=== PATIENT | female | born 1930 | race Caucasian/White ===

== ENCOUNTER 2016-12-27 18:14 | Inpatient (IN) | payer OTHER ==
[~2016-12-27] VITALS: Ht 157.5 cm; Wt 59.4 kg
[~2016-12-27 18:14] MED LIST: ASPI81TA28 PO; CALC500C70 PO; CARBTAB2 PO; CLC100X PO; FSM70 PO; GLUCTAB18 PO; MULT-506 PO; OMEG10007 PO; OXYC1TAB3 PO; PRLSR20 PO; XNX25 PO
[2016-12-27] MEDS ORDERED: SODIUM CHLORIDE 0.9% 1000ML 1,000 ML IV ONE (18:25)
[2016-12-27] MEDS ORDERED: ONDANSETRON INJ 2 MG/ML 2 ML VIAL IV STA (18:27)
--- NOTE | 2016-12-27 18:36 | EMERGENCY ROOM VISIT NOTE ---
History Report prepared by Elizabeth: Indy Patel Under the Supervision of: Dr. Maximilian Dominguez M.D. First contact with patient: 18:20 Chief Complaint: FALL Stated Complaint: FALL R HIP & KNEE PAIN History of Present Illness The patient is an 86 year old female who presents to the Emergency Room with complaints of a sudden fall that occurred just prior to arrival. Per nursing staff, the patient was cooking in her kitchen when her right knee gave out from under her and causing her to fall. They note that the patient landed on her right hip, and the patient reports right hip pain. The patient reports a history of a right knee replacement several years ago, noting that her knee gives out from time to time. The patient additionally notes head pain, reporting that she hit her head off the door. Review of Systems See HPI for pertinent positives & negatives. A total of 10 systems reviewed and were otherwise negative. Past Medical & Surgical Medical Problems: (1) Anxiety (2) Hip fracture (3) Osteoporosis (4) Parkinson disease Surgical Problems: (1) History of cataract surgery (2) History of left knee replacement (3) History of repair of right rotator cuff (4) History of spinal fusion (5) Status post right knee replacement Family History No pertinent family history stated. Social History Marital Status: Housing Status: lives with significant other Occupation Status: retired Current/Historical Medications Scheduled Alprazolam (Alprazolam), 0.25 MG PO BID Aspirin (Aspirin EC Low Dose), 81 MG PO DAILY Calcium/Vitamin D (Os-Nithin 500 Plus D), 1 TAB PO BID Carbidopa/Levodopa (Sinemet 25MG/100MG), 2 TAB PO UD Duloxetine HCl (Cymbalta), 1 CAP PO HS Enoxaparin (Enoxaparin Sodium), 40 MG SQ DAILY Ferrous Sulfate (Ferrous Sulfate), 325 MG PO DAILY Misc Natural Products (Osteo Bi-Flex Joint Shiel), 2 TAB PO DAILY Multivitamin (Multivitamin), 1 TAB PO DAILY Ocuvite Preservision (Ocuvite Preservision), 1 TAB PO BID Omeprazole (Prilosec), 20 MG PO DAILY Senna/Docusate Sod (Senokot S), 1 TAB PO BID Scheduled PRN Acetaminophen (Tylenol), 1,000 MG PO Q8 PRN for Pain Oxycodone Ir (Roxicodone Ir), 5 MG PO Q8 PRN for severe pain Polyethylene Glycol 3350 (Miralax), 17 GM PO BID PRN for Constipation Tramadol (Ultram), 50 MG PO Q6H PRN for Pain Allergies Coded Allergies: No Known Allergies (Unverified , 12/27/16) Physical Exam Vital Signs Date Time Temp Pulse Resp B/P (MAP) Pulse Ox O2 Delivery O2 Flow Rate FiO2 12/27/16 21:09 76 18 149/68 96 Room Air 12/27/16 19:08 73 18 168/80 99 Room Air 12/27/16 18:20 36.8 67 18 186/96 100 Room Air Physical Exam GENERAL: Patient is a healthy-appearing well-nourished female HEAD: Normocephalic atraumatic EYES: Ocular movements intact pupils equal and react to light OROPHARYNX mucous membranes are moist no exudates present no erythema or edema present NECK: Supple no nuchal rigidity CHEST: Good equal expansion LUNGS: Clear and equal to auscultation CARDIAC: Normal S1 and S2 ABDOMEN: Soft nontender no guarding BACK: No CVA tenderness EXTREMITIES: Right hip is extraverted and shortened. Neurovascularly intact at the right foot. No pain upon palpation normal muscle strength in all groups no clubbing cyanosis or edema NEURO: Patient is following commands and answering questions appropriately. Alert and oriented x3 Cranial Nerves 2-12 grossly intact Medical Decision & Procedures ER Provider Diagnostic Interpretation: Radiology results as stated below per my review and radiologist interpretation: HEAD CT NONCONTRAST CT DOSE: 537.48 mGy.cm HISTORY: Trauma Pt c/o fall ,hit head TECHNIQUE: Multiaxial CT images of the head were performed without the use of intravenous contrast. Comparison: None. Findings: The paranasal sinuses and mastoid air cells are clear. The calvarium and skull base are intact. The ventricles and sulci are within normal limits. There is no mass, hematoma, midline shift, or acute infarct. Age-related chronic small vessel change. Impression: No acute intracranial abnormality. Age-related change. Electronically signed by: Patel Shah M.D. 12/27/2016 7:37 PM Dictated Date/Time: 12/27/2016 7:36 PM CHEST 1 VW FRONT-NOT PORTABLE CLINICAL HISTORY: FALL trauma COMPARISON STUDY: 12/18/2012 FINDINGS: The bones soft tissues and hemidiaphragms are normal. The cardiomediastinal silhouette is normal. The lungs are clear. The pulmonary vasculature is normal. IMPRESSION: Negative chest. Electronically signed by: Patel Shah M.D. 12/27/2016 8:09 PM Dictated Date/Time: 12/27/2016 8:09 PM RIGHT FEMUR 2 VIEWS ROUTINE CLINICAL HISTORY: Pt c/o Rt hip pain Right pain. Trauma. COMPARISON: None. DISCUSSION: Intertrochanteric fracture right hip. Avulsion of the greater and lesser trochanters. No evidence of dislocation. The remainder the femur appears to be intact. Postoperative changes to the proximal tibia. There is no evidence for soft tissue swelling. IMPRESSION: Intertrochanteric fracture right hip. Electronically signed by: Patel Shah M.D. 12/27/2016 8:10 PM Dictated Date/Time: 12/27/2016 8:10 PM RIGHT PELVIS/UNILATERAL HIP 2-3VIEWS CLINICAL HISTORY: Pt c/o Rt hip pain Right trauma. Pain. COMPARISON: None. DISCUSSION: Intertrochanteric fracture right hip. Avulsion of the greater and lesser trochanter. No evidence for acetabular protrusion. Postoperative changes to low lumbar spine. IMPRESSION: 1. Intertrochanteric fracture right hip. 2. Evulsion of a lesser and greater trochanters Electronically signed by: Patel Shah M.D. 12/27/2016 8:09 PM Dictated Date/Time: 12/27/2016 8:08 PM Laboratory Results Test 12/27/16 18:30 12/27/16 20:27 Immature Granulocyte % (Auto) 0.4 % White Blood Count 7.51 K/uL (4.8-10.8) Red Blood Count 4.38 M/uL (4.2-5.4) Hemoglobin 13.6 g/dL (12.0-16.0) Hematocrit 41.1 % (37-47) Mean Corpuscular Volume 93.8 fL (80-100) Mean Corpuscular Hemoglobin 31.1 pg (25-34) Mean Corpuscular Hemoglobin Concent 33.1 g/dl (32-36) Platelet Count 272 K/uL (130-400) Mean Platelet Volume 8.6 fL (7.4-10.4) Neutrophils (%) (Auto) 70.4 % Lymphocytes (%) (Auto) 16.6 % Monocytes (%) (Auto) 11.5 % Eosinophils (%) (Auto) 0.7 % Basophils (%) (Auto) 0.4 % Neutrophils # (Auto) 5.29 K/uL (1.4-6.5) Lymphocytes # (Auto) 1.25 K/uL (1.2-3.4) Monocytes # (Auto) 0.86 K/uL (0.11-0.59) Eosinophils # (Auto) 0.05 K/uL (0-0.5) Basophils # (Auto) 0.03 K/uL (0-0.2) Immature Granulocyte # (Auto) 0.03 K/uL (0.00-0.02) Prothrombin Time 11.2 SECONDS (9.0-12.0) Prothromb Time International Ratio 1.0 (0.9-1.1) Activated Partial Thromboplast Time 26.1 SECONDS (21.0-31.0) Partial Thromboplastin Ratio 1.0 Magnesium Level 2.1 mg/dl (1.8-2.4) Thyroid Stimulating Hormone (TSH) 3.640 uIu/ml (0.300-4.500) Chemistry Specimen Hemolysis Urine Color YELLOW Urine Appearance CLEAR (CLEAR) Urine pH 6.0 (4.5-7.5) Urine Specific [place] 1.022 (1.000-1.030) Urine Protein NEG (NEG) Urine Glucose (UA) NEG (NEG) Urine Ketones 2+ (NEG) Urine Occult Blood NEG (NEG) Urine Nitrite NEG (NEG) Urine Bilirubin NEG (NEG) Urine Urobilinogen NEG (NEG) Urine Leukocyte Esterase NEG (NEG) Labs reviewed by ED physician. Medications Administered Medications (Trade) Dose Ordered Sig/Tonie Route Start Time Stop Time Status Last Admin Dose Admin Sodium Chloride 1,000 ml @ 75 mls/hr [id number] ONCE IV 12/27/16 18:25 12/27/16 21:54 DC 12/27/16 18:25 75 MLS/HR Hydromorphone HCl (Dilaudid Inj) 0.5 mg Q20M PRN IV 12/27/16 18:30 12/28/16 16:06 DC 12/27/16 21:17 0.5 MG Ondansetron HCl (Zofran Inj) 4 mg NOW STAT IV 12/27/16 18:27 12/27/16 18:28 DC 12/27/16 19:06 4 MG ECG Indication: other (trauma) ED Course 1821: Past medical records reviewed. The patient was evaluated in room C9. A complete history and physical examination was performed. 1824: Ordered Sodium Chloride 1000 ml @ 75 mls/hr IV. 1826: Ordered Zofran Inj 4 mg IV. 1829: Ordered Dilaudid Inj 0.5 mg IV. 1956: I reevaluated the patient and she is resting. I discussed the exam findings with her and her family and I discussed the treatment plan. They verbalized complete understanding and agreement. The patient will be evaluated for further treatment. 2000: I discussed the patient's case with Eun Bunch. He states that the patient should be evaluated by a hospitalist and they will consult. 2002: I discussed the patient's case with Srikanth Mendoza. He is going to evaluate the patient for further treatment. Medical Decision Differential diagnosis: Etiologies such as fracture, dislocation, neurovascular compromise, compartment syndrome, soft tissue injury, as well as others were entertained. Medication Reconciliation: I attest that I have personally reviewed the patient' s current medication list Blood Pressure Screening: Patient was found to have an elevated blood pressure and was referred to their primary care doctor for recheck and further treatment This is an 86-year-old female that presents emergency Department with right hip pain. The patient is complaining of right hip pain is unable to move her right leg. She does appear to have a hip fracture on x-ray. The hip fracture protocol was initiated the patient was discussed with the hospitalist service who agreed to admit the patient. Patient was in agreement with the treatment plan. Consults Time Called: 1999 Consulting Physician: Dr. Luu Orthopediclydia Returned Call: 2000 I discussed the patient's case with Eun Bunch. He states that the patient should be evaluated by a hospitalist and they will consult. Additional Consults: Time Called: 2001 Consulted Physician: Srikanth Mendoza Returned Call: 2002 Additional Comments: I discussed the patient's case with Srikanth Mendoza. He is going to evaluate the patient for further treatment. Impression Primary Impression: Fall Additional Impression: Hip fracture, right Scribe Attestation The scribe's documentation has been prepared under my direction and personally reviewed by me in its entirety. I confirm that the note above accurately reflects all work, treatment, procedures, and medical decision making performed by me. Departure Information Dispostion Being Evaluated By Hospitalist Prescriptions Ferrous Sulfate (FERROUS SULFATE) 325 Mg Tab 325 MG PO DAILY for 30 Days daily with lunch Prov: Beto Srinivasan M.D. 12/30/16 Enoxaparin (Enoxaparin Sodium) 40 Mg/0.4 Ml Inj 40 MG SQ DAILY for 30 Days Prov: Beto Srinivasan M.D. 12/30/16 Polyethylene Glycol 3350 (MIRALAX) 1 Pow Pow 17 GM PO BID Y for Constipation for 30 Days Prov: Beto Srinivasan M.D. 12/30/16 Senna/Docusate Sod (Senokot S) 1 Tab Tab 1 TAB PO BID for 30 Days, #60 TAB Prov: Beto Srinivasan M.D. 12/30/16 Oxycodone Ir (Roxicodone Ir) 5 Mg Tab 5 MG PO Q8 Y for severe pain, #12 TAB Prov: Beto Srinivasan M.D. 12/30/16 Referrals Madhu Milian DBettyOBetty (PCP) Problem Qualifiers Primary Impression: Fall Encounter type: initial encounter Qualified Codes: W19.XXXA - Unspecified fall, initial encounter Additional Impression: Hip fracture, right Encounter type: initial encounter Fracture type: closed Qualified Codes: S72.001A - Fracture of unspecified part of neck of right femur, initial encounter for closed fracture
[2016-12-27 18:42] LABS: BASO % 0.4 %; BASO ABS # 0.03 K/uL (0-0.2); COMPLETE YES; EOS % 0.7 %; HEMATOCRIT 41.1 % (37-47); IG% 0.4 %; LYMPH % 16.6 %; LYMPH ABS # 1.25 K/uL (1.2-3.4); MEAN CELL VOLUME 93.8 fL (80-100); MEAN CORPUSCULAR HEMOGLOBIN 31.1 pg (25-34); MEAN CORPUSCULAR HGB CONC 33.1 g/dl (32-36); MEAN PLATELET VOLUME 8.6 fL (7.4-10.4); MONO % 11.5 %; NEUT % 70.4 %; PLATELET COUNT 272 K/uL (130-400); RED BLOOD COUNT 4.38 M/uL (4.2-5.4); WHITE BLOOD COUNT 7.51 K/uL (4.8-10.8)
[2016-12-27 18:57] LABS: PROTHROMBIN TIME (PATIENT) 11.2 SECONDS (9.0-12.0)
[2016-12-27] MEDS: HYDROmorphone INJ 0.5 MG/0.5 ML SYR IV PRN ×2 (19:06→21:17)
[2016-12-27 19:12] LABS: BUN/CREATININE RATIO 26.4 (10-20); CREATININE 0.56 mg/dl (0.60-1.20); POTASSIUM 4.1 mmol/L (3.5-5.1)
[2016-12-27] MEDS ORDERED: OXYC1TAB3 PO (19:13)
[2016-12-27] MEDS ORDERED: CLC100X PO (19:13)
[2016-12-27] MEDS ORDERED: ACET-1256 PO (19:16)
[2016-12-27] MEDS ORDERED: XNX25X PO (19:16)
--- NOTE | 2016-12-27 19:38 | DIAGNOSTIC IMAGING REPORT ---
HEAD CT NONCONTRAST CT DOSE: 537.48 mGy.cm HISTORY: Trauma Pt c/o fall ,hit head TECHNIQUE: Multiaxial CT images of the head were performed without the use of intravenous contrast. Comparison: None. Findings: The paranasal sinuses and mastoid air cells are clear. The calvarium and skull base are intact. The ventricles and sulci are within normal limits. There is no mass, hematoma, midline shift, or acute infarct. Age-related chronic small vessel change. Impression: No acute intracranial abnormality. Age-related change. Electronically signed by: Patel Shah M.D. 12/27/2016 7:37 PM Dictated Date/Time: 12/27/2016 7:36 PM
--- NOTE | 2016-12-27 20:10 | DIAGNOSTIC IMAGING REPORT ---
RIGHT PELVIS/UNILATERAL HIP 2-3VIEWS CLINICAL HISTORY: Pt c/o Rt hip pain Right trauma. Pain. COMPARISON: None. DISCUSSION: Intertrochanteric fracture right hip. Avulsion of the greater and lesser trochanter. No evidence for acetabular protrusion. Postoperative changes to low lumbar spine. IMPRESSION: 1. Intertrochanteric fracture right hip. 2. Evulsion of a lesser and greater trochanters Electronically signed by: Patel Shah M.D. 12/27/2016 8:09 PM Dictated Date/Time: 12/27/2016 8:08 PM
--- NOTE | 2016-12-27 20:11 | DIAGNOSTIC IMAGING REPORT ---
CHEST 1 VW FRONT-NOT PORTABLE CLINICAL HISTORY: FALL trauma COMPARISON STUDY: 12/18/2012 FINDINGS: The bones soft tissues and hemidiaphragms are normal. The cardiomediastinal silhouette is normal. The lungs are clear. The pulmonary vasculature is normal. IMPRESSION: Negative chest. Electronically signed by: Patel Shah M.D. 12/27/2016 8:09 PM Dictated Date/Time: 12/27/2016 8:09 PM
--- NOTE | 2016-12-27 20:12 | DIAGNOSTIC IMAGING REPORT ---
RIGHT FEMUR 2 VIEWS ROUTINE CLINICAL HISTORY: Pt c/o Rt hip pain Right pain. Trauma. COMPARISON: None. DISCUSSION: Intertrochanteric fracture right hip. Avulsion of the greater and lesser trochanters. No evidence of dislocation. The remainder the femur appears to be intact. Postoperative changes to the proximal tibia. There is no evidence for soft tissue swelling. IMPRESSION: Intertrochanteric fracture right hip. Electronically signed by: Patel Shah M.D. 12/27/2016 8:10 PM Dictated Date/Time: 12/27/2016 8:10 PM
[2016-12-27 20:36] LABS: URINE APPEARANCE CLEAR (CLEAR); URINE BILIRUBIN NEG (NEG); URINE COLOR YELLOW; URINE NITRITE NEG (NEG); URINE SPECIFIC GRAVITY 1.022 (1.000-1.030); UROBILINOGEN NEG (NEG); ZZURINE CULT IF INDIC CATH NO
[2016-12-27] MEDS ORDERED: CYM/30 PO (20:40)
[2016-12-27] MEDS ORDERED: MISCTAB30 PO (20:40)
[2016-12-27] MEDS ORDERED: TRAM-10 PO (20:40)
[2016-12-27] MEDS ORDERED: MULT-190 PO (20:40)
[2016-12-27] MEDS ORDERED: ASPEC81 PO (20:40)
[2016-12-27 20:43] LABS: MANUAL MICROSCOPIC REQUIRED? NO; REVIEW REQ? NO
--- NOTE | 2016-12-27 21:01 | History and Physical ---
History & Physical Date & Time of Service: Dec 27, 2016 ~ 20:30 Chief Complaint: Fall, Right Hip Pain Primary Care Physician: Madhu Milian D.O. History of Present Illness 86 year old female who presents to the ER after a fall and right hip pain. Patient reports she was making dinner and when she turned away from the counter she fell to the floor. She denies lightheadedness, dizziness, or loss of coconsciousness. She did strike her head on the cabinets. She then had severe right hip pain and was unable to move her right leg. She denies associated chest pain or shortness of breath. She reports she has been feeling well recently. She is able to go to the grocery store and denies any exertional chest pain or shortness of breath. She denies abdominal pain, nausea, vomiting, or diarrhea. No fevers or chills. She denies urinary symptoms. In the ER, patient is found to have an intertrochanteric fracture right hip. Labs are unremarkable. Vitals are stable. Past Medical/Surgical History Medical Problems: (1) Anxiety Status: Chronic (2) Osteoporosis Status: Chronic (3) Parkinson disease Status: Chronic Surgical Problems: (1) History of cataract surgery Status: Chronic (2) History of left knee replacement Status: Chronic (3) History of repair of right rotator cuff Status: Chronic (4) History of spinal fusion Status: Chronic (5) Status post right knee replacement Status: Resolved Family History non contributory due to patient's age Social History Smoking Status: Never Smoker Alcohol Use: none Marital Status: Housing status: lives with family Immunizations History of Influenza Vaccine: Yes Influenza Vaccine Date: May 04, 2016 History of Tetanus Vaccine?: Yes Tetanus Immunization Date: Apr 01, 2016 History of Pneumococcal: Yes Pneumococcal Date: Apr 07, 2015 Multi-Drug Resistant Organisms History of MDRO: No Allergies Coded Allergies: No Known Allergies (Unverified , 12/27/16) Home Medications Scheduled Alprazolam (Alprazolam), 0.25 MG PO BID Aspirin (Aspirin EC Low Dose), 81 MG PO DAILY Calcium/Vitamin D (Os-Nithin 500 Plus D), 1 TAB PO DAILY Carbidopa/Levodopa/Entacapone 25/100/200MG (Stalevo 100), 2 TAB PO 5XD Duloxetine HCl (Cymbalta), 1 CAP PO HS Fish Oil ([place]-3), 1 CAP PO BID Misc Natural Products (Osteo Bi-Flex Joint Shiel), 2 TAB PO DAILY Multivitamin (Multivitamin), 1 TAB PO DAILY Ocuvite Preservision (Ocuvite Preservision), 1 TAB PO BID Omeprazole (Prilosec), 20 MG PO DAILY Scheduled PRN Acetaminophen (Tylenol), 1,000 MG PO Q8 PRN for Pain Tramadol (Ultram), 50 MG PO Q6H PRN for Pain Review of Systems ROS per HPI, all other systems reviewed and negative Physical Exam Vital Signs Date Time Temp Pulse Resp B/P (MAP) Pulse Ox O2 Delivery O2 Flow Rate FiO2 12/27/16 19:08 73 18 168/80 99 Room Air 12/27/16 18:20 36.8 67 18 186/96 100 Room Air General Appearance: no apparent distress Head: normocephalic Eyes: normal inspection ENT: hearing grossly normal Neck: supple, no JVD Respiratory/Chest: lungs clear, normal breath sounds, no respiratory distress Cardiovascular: regular rate, rhythm, no edema, normal peripheral pulses, + systolic murmur Abdomen/GI: normal bowel sounds, non tender, soft Extremities/Musculoskelatal: + pertinent finding (right hip pain with palpation and movement) Neurologic/Psych: no motor/sensory deficits, alert, normal mood/affect, oriented x 3 Skin: normal color, warm/dry Diagnostics Laboratory Results Results Past 24 Hours Test 12/27/16 18:30 12/27/16 20:27 Range/Units White Blood Count 7.51 4.8-10.8 K/uL Red Blood Count 4.38 4.2-5.4 M/uL Hemoglobin 13.6 12.0-16.0 g/dL Hematocrit 41.1 37-47 % Mean Corpuscular Volume 93.8 80-100 fL Mean Corpuscular Hemoglobin 31.1 25-34 pg Mean Corpuscular Hemoglobin Concent 33.1 32-36 g/dl Platelet Count 272 130-400 K/uL Mean Platelet Volume 8.6 7.4-10.4 fL Neutrophils (%) (Auto) 70.4 % Lymphocytes (%) (Auto) 16.6 % Monocytes (%) (Auto) 11.5 % Eosinophils (%) (Auto) 0.7 % Basophils (%) (Auto) 0.4 % Neutrophils # (Auto) 5.29 1.4-6.5 K/uL Lymphocytes # (Auto) 1.25 1.2-3.4 K/uL Monocytes # (Auto) 0.86 0.11-0.59 K/uL Eosinophils # (Auto) 0.05 0-0.5 K/uL Basophils # (Auto) 0.03 0-0.2 K/uL RDW Standard Deviation 45.4 36.4-46.3 fL RDW Coefficient of Variation 13.2 11.5-14.5 % Immature Granulocyte % (Auto) 0.4 % Immature Granulocyte # (Auto) 0.03 0.00-0.02 K/uL Prothrombin Time 11.2 9.0-12.0 SECONDS Prothromb Time International Ratio 1.0 0.9-1.1 Activated Partial Thromboplast Time 26.1 21.0-31.0 SECONDS Partial Thromboplastin Ratio 1.0 Sodium Level 132 136-145 mmol/L Potassium Level 4.1 3.5-5.1 mmol/L Chloride Level 96 98-107 mmol/L Carbon Dioxide Level 29 21-32 mmol/L Anion Gap 7.0 3-11 mmol/L Blood Urea Nitrogen 15 7-18 mg/dl Creatinine 0.56 0.60-1.20 mg/dl Est Creatinine Clear Calc Drug Dose 57.1 ml/min Estimated GFR () 97.9 Estimated GFR (Non- 84.4 BUN/Creatinine Ratio 26.4 10-20 Random Glucose 104 70-99 mg/dl Calcium Level 9.0 8.5-10.1 mg/dl Chemistry Specimen Hemolysis Urine Color YELLOW Urine Appearance CLEAR CLEAR Urine pH 6.0 4.5-7.5 Urine Specific [place] 1.022 1.000-1.030 Urine Protein NEG NEG Urine Glucose (UA) NEG NEG Urine Ketones 2+ NEG Urine Occult Blood NEG NEG Urine Nitrite NEG NEG Urine Bilirubin NEG NEG Urine Urobilinogen NEG NEG Urine Leukocyte Esterase NEG NEG Diagnostic Radiology PELVIS/HIP XR IMPRESSION: 1. Intertrochanteric fracture right hip. 2. Evulsion of a lesser and greater trochanters RIGHT FEMUR XR IMPRESSION: Intertrochanteric fracture right hip. CT Head Impression: No acute intracranial abnormality. Age-related change. CXR IMPRESSION: Negative chest. Impression Assessment and Plan RIGHT INTERTROCHANTERIC HIP FRACTURE - admit to med/surg - patient presenting after a mechanical fall; found to have right hip fracture - patient denies any cardiopulmonary complaints, no history of CAD; noted to have murmur on exam, no echo on file, would consider obtaining prior to surgery - EKG without changes, CXR clear, labs unremarkable - ortho consult, NPO after midnight for possible surgery tomorrow [facility] - continue Sinemet DVT PROPHYLAXIS - SCDs due to possible surgery tomorrow DISPO - In my clinical judgment this beneficiary meets acute admission criteria, established by [facility], that includes being hospitalized through two midnights. Assessment/Plan IM ATTENDING : Nabil seen and examined. Preceding documentation by KENAN Mueller reviewed. FINAL A/P as follows : 1. Traumatic hip fx R 2 to mechanical fall 2. situational HTN 3. hyponatremia, ketonuria, mild clinical dehydration 4. Parkinson dse, stable on meds 5. new systolic murmur GMF analgesia Ortho consult RE R hip fx No medical contraindication to contemplated medical procedure Px low risk for cardiac complications for intermediate risk procedure as per RCRI criteria. ff sodium, NSS TTE re new murmur (results of study should not delay surgery) DVT prophylaxis, SCDS preop, recommend pharmacologic anticoagulation w/ Lovenox SQ if Ortho agreeable - once bleeding risks are deemed minimal and negligible. Full code Px's daughter requesting updates from providers. Miss Carol Encinas, , .
[2016-12-27 21:21] LABS: MAGNESIUM 2.1 mg/dl (1.8-2.4); THYROID STIMULATING HORMONE 3.64 uIu/ml (0.300-4.500)
[2016-12-27] MEDS ORDERED: MAGNESIUM HYDROXIDE SUSP 30 ML UDC PO PRN (22:00)
[2016-12-27] MEDS ORDERED: [UNRECOGNIZED DRUG - OTHER] PO SCH (22:00)
[2016-12-27] MEDS ORDERED: ACETAMINOPHEN 325 MG TAB PO PRN (22:00)
[2016-12-27] MEDS ORDERED: SOD PHOSPHATE/SOD BIPHOSPHATE ENEMA 132 ML BTL PR PRN (22:00)
[2016-12-27] MEDS ORDERED: NALOXONE HCL 0.4 MG/1 ML VIAL/CARP IV PRN (22:00)
[2016-12-27] MEDS ORDERED: MoRPHine SULFATE 4 MG/ML 1 ML CARP IV PRN (22:00)
[2016-12-27] MEDS ORDERED: ENTACAPONE PO SCH (22:00)
[2016-12-27] MEDS ORDERED: CARBIDOPA PO SCH (22:00)
[2016-12-27] MEDS ORDERED: BISACODYL 10 MG SUPP PR PRN (22:00)
[2016-12-27] MEDS ORDERED: POLYETHYLENE (MIRALAX) 17 GM PACK PO PRN (22:00)
[2016-12-27] MEDS ORDERED: ONDANSETRON INJ 2 MG/ML 2 ML VIAL IV PRN (22:00)
[2016-12-27] MEDS ORDERED: TRAMADOL HCL 50 MG TAB PO PRN (22:00)
[2016-12-27] MEDS ORDERED: LEVODOPA PO SCH (22:00)
[2016-12-27 22:07] VITALS: BP 127/72; PULSE 83; TEMP 37.1; O2SAT 96
[2016-12-27 22:13] VITALS: BP 127/72; PULSE 83; TEMP 37.1; Ht 157.5 cm; Wt 59.4 kg
[2016-12-27] MEDS: SODIUM CHLORIDE 0.9% 1000ML 1,000 ML IV SCH (23:36)
[2016-12-28] MEDS: ENTACAPONE 200 MG TAB PO SCH ×5 (06:23→22:30)
[2016-12-28] MEDS: CARBIDOPA/LEVODOPA 25/100MG TAB PO SCH ×5 (06:24→22:30)
[2016-12-28 07:30] VITALS: BP 114/66; PULSE 77; TEMP 37.2; O2SAT 95
[2016-12-28 07:56] LABS: BUN/CREATININE RATIO 31.5 (10-20); CALCIUM 8.1 mg/dl (8.5-10.1); CREATININE 0.48 mg/dl (0.60-1.20); POTASSIUM 4.1 mmol/L (3.5-5.1)
--- NOTE | 2016-12-28 08:28 | Medical Consult ---
Consultation Date of Consultation: Dec 28, 2016. Attending Physician: Beto Srinivasan M.D. Reason for Consultation: Right Intertrochanteric Hip Fracture History of Present Illness 86 yo wf who states she was making dinner in her home. She went to take some pasta from the stove to the sink to strain it and her right knee gave out and she fell to the floor. She had immediate pain in the hip and groin and was unable to ambulate. She states she normally wears a knee brace to give her more support but she was not wearing the brace yesterday. She denies LOC, SOB, CP , dizziness, or lightheadedness prior to or after the fall. She did hit her head on the cabinets during the fall. She was brought to [facility] ED and was found to have an intertrochanteric hip fx of the right hip. Pt was admitted for further care and we have been asked to take care of her R hip fx. Past Medical/Surgical History Medical Problems: (1) Anxiety Status: Chronic (2) Osteoporosis Status: Chronic (3) Parkinson disease Status: Chronic Surgical Problems: (1) History of cataract surgery Status: Chronic (2) History of left knee replacement Status: Chronic (3) History of repair of right rotator cuff Status: Chronic (4) History of spinal fusion Status: Chronic (5) Status post right knee replacement Status: Resolved Family History Noncontributory Social History Smoking Status: Never Smoker Alcohol Use: none Marital Status: Housing Status: lives with significant other Allergies Coded Allergies: No Known Allergies (Unverified , 12/27/16) Home Medications Home Medications Scheduled Alprazolam (Alprazolam), 0.25 MG PO BID Aspirin (Aspirin EC Low Dose), 81 MG PO DAILY Calcium/Vitamin D (Os-Nithin 500 Plus D), 1 TAB PO DAILY Carbidopa/Levodopa/Entacapone 25/100/200MG (Stalevo 100), 2 TAB PO 5XD Duloxetine HCl (Cymbalta), 1 CAP PO HS Fish Oil ([place]-3), 1 CAP PO BID Misc Natural Products (Osteo Bi-Flex Joint Shiel), 2 TAB PO DAILY Multivitamin (Multivitamin), 1 TAB PO DAILY Ocuvite Preservision (Ocuvite Preservision), 1 TAB PO BID Omeprazole (Prilosec), 20 MG PO DAILY Scheduled PRN Acetaminophen (Tylenol), 1,000 MG PO Q8 PRN for Pain Tramadol (Ultram), 50 MG PO Q6H PRN for Pain Current Inpatient Medications Current Inpatient Medications Medications (Trade) Dose Ordered Sig/Tonie Route Start Time Stop Time Status Last Admin Dose Admin Hydromorphone HCl (Dilaudid Inj) 0.5 mg Q20M PRN IV 12/27/16 18:30 01/10/17 18:29 12/27/16 21:17 0.5 MG Alprazolam (Xanax Tab) 0.25 mg BID PO 12/28/16 09:00 01/27/17 08:59 Duloxetine HCl (Cymbalta Cap) 30 mg HS PO 12/28/16 21:00 01/27/17 20:59 Multivitamins (Multivitamin Tab) 1 tab DAILY PO 12/28/16 09:00 01/27/17 08:59 Multivitamins/ Minerals (Multivitamin W/ Minerals Tab) 1 tab BID PO 12/28/16 09:00 01/27/17 08:59 Pantoprazole Sodium (Protonix Tab) 40 mg DAILY PO 12/28/16 09:00 01/27/17 08:59 Sodium Chloride 1,000 ml @ 40 mls/hr Q24H IV 12/27/16 22:00 01/26/17 21:59 12/27/16 23:36 40 MLS/HR Ondansetron HCl (Zofran Inj) 4 mg Q6H PRN IV 12/27/16 22:00 01/26/17 21:59 Tramadol HCl (Ultram Tab) not relieved ... Q6H PRN PO 12/27/16 22:00 01/26/17 21:59 12/28/16 05:40 50 MG Morphine Sulfate (MoRPHine SULFATE INJ) 4 mg Q3H PRN IV 12/27/16 22:00 01/10/17 21:59 12/27/16 23:37 4 MG Acetaminophen (Tylenol Tab) 650 mg Q4H PRN PO 12/27/16 22:00 01/26/17 21:59 Naloxone HCl (Narcan Inj) 0.1 mg PRN PRN IV 12/27/16 22:00 01/26/17 21:59 Senna/Docusate Sodium (Senokot S Tab) 2 tab HS PO 12/28/16 21:00 01/27/17 20:59 Polyethylene (Miralax Powder Packet) 17 gm DAILY PRN PO 12/27/16 22:00 01/26/17 21:59 Magnesium Hydroxide (Milk Of Magnesia Susp) 30 ml DAILY PRN PO 12/27/16 22:00 01/26/17 21:59 Bisacodyl (Dulcolax Supp) 10 mg DAILY PRN [place] 12/27/16 22:00 01/26/17 21:59 Sodium Biphosphate/ Sodium Phosphate (Fleet Enema) 132 ml PRN PRN [place] 12/27/16 22:00 Carbidopa/Levodopa (Sinemet 25/ 100MG Tab) 2 tab 5XDQ4H PO 12/28/16 07:00 01/27/17 06:59 12/28/16 06:24 2 TAB Entacapone (Comtan) 400 mg 5XDQ4H PO 12/28/16 07:00 01/27/17 06:59 12/28/16 06:23 400 MG Review of Systems As per admitting H&P Physical Exam Date Time Temp Pulse Resp B/P (MAP) Pulse Ox O2 Delivery O2 Flow Rate FiO2 12/28/16 07:30 37.2 77 16 114/66 (82) 95 Room Air 12/27/16 23:45 Room Air 12/27/16 22:13 37.1 83 18 127/72 Room Air 12/27/16 22:07 37.1 83 18 127/72 (90) 96 Room Air 12/27/16 21:09 76 18 149/68 96 Room Air 12/27/16 19:08 73 18 168/80 99 Room Air 12/27/16 18:20 36.8 67 18 186/96 100 Room Air General Appearance: WD/WN, no apparent distress Head: normocephalic, + pertinent finding (small abrasion on forehead) Eyes: normal inspection Neck: + pertinent finding (Nontender on palpation; ROM wnl) Respiratory/Chest: chest non-tender Back: + pertinent finding (Denies tenderness of the thoracic/lumbar spine at present time) Extremities/Musculoskelatal: + pertinent finding (RLE elevated on pillow under thigh; No attempts made to do ROM of hip. R knee NT; ROM of R ankle and toes wnl ; calves soft, NT; LLE NT with ROM wnl; R shoulder with discomfort not new to her. ROM decreased also normal for her. Mild discomfort with ROM of right shoulder; Right shoulder with a bit more swelling than the left; LUE wnl and NT ) Neurologic/Psych: no motor/sensory deficits, oriented x 3 Skin: normal color Laboratory Results Last 24 Hours Test 12/27/16 18:30 12/27/16 20:27 12/27/16 22:25 12/28/16 06:47 White Blood Count 7.51 K/uL Red Blood Count 4.38 M/uL Hemoglobin 13.6 g/dL Hematocrit 41.1 % Mean Corpuscular Volume 93.8 fL Mean Corpuscular Hemoglobin 31.1 pg Mean Corpuscular Hemoglobin Concent 33.1 g/dl Platelet Count 272 K/uL Mean Platelet Volume 8.6 fL Neutrophils (%) (Auto) 70.4 % Lymphocytes (%) (Auto) 16.6 % Monocytes (%) (Auto) 11.5 % Eosinophils (%) (Auto) 0.7 % Basophils (%) (Auto) 0.4 % Neutrophils # (Auto) 5.29 K/uL Lymphocytes # (Auto) 1.25 K/uL Monocytes # (Auto) 0.86 K/uL Eosinophils # (Auto) 0.05 K/uL Basophils # (Auto) 0.03 K/uL RDW Standard Deviation 45.4 fL RDW Coefficient of Variation 13.2 % Immature Granulocyte % (Auto) 0.4 % Immature Granulocyte # (Auto) 0.03 K/uL Prothrombin Time 11.2 SECONDS Prothromb Time International Ratio 1.0 Activated Partial Thromboplast Time 26.1 SECONDS Partial Thromboplastin Ratio 1.0 Sodium Level 132 mmol/L 135 mmol/L 133 mmol/L Potassium Level 4.1 mmol/L 4.1 mmol/L Chloride Level 96 mmol/L 97 mmol/L Carbon Dioxide Level 29 mmol/L 29 mmol/L Anion Gap 7.0 mmol/L 7.0 mmol/L Blood Urea Nitrogen 15 mg/dl 15 mg/dl Creatinine 0.56 mg/dl 0.48 mg/dl Est Creatinine Clear Calc Drug Dose 57.1 ml/min 66.6 ml/min Estimated GFR () 97.9 102.9 Estimated GFR (Non- 84.4 88.8 BUN/Creatinine Ratio 26.4 31.5 Random Glucose 104 mg/dl 105 mg/dl Calcium Level 9.0 mg/dl 8.1 mg/dl Magnesium Level 2.1 mg/dl Thyroid Stimulating Hormone (TSH) 3.640 uIu/ml Chemistry Specimen Hemolysis Urine Color YELLOW Urine Appearance CLEAR Urine pH 6.0 Urine Specific [place] 1.022 Urine Protein NEG Urine Glucose (UA) NEG Urine Ketones 2+ Urine Occult Blood NEG Urine Nitrite NEG Urine Bilirubin NEG Urine Urobilinogen NEG Urine Leukocyte Esterase NEG Osmolality 280 mOsm/kg 25-Hydroxy Vitamin D Total 44.2 ng/ml Assessment & Plan Right Intertrochanteric Hip Fracture Pending medical clearance, we will plan for a Trochanteric Femoral Nailing today with Dr Luu in the early afternoon.
[2016-12-28] MEDS: MULTIVITAMIN TAB PO SCH (09:00)
[2016-12-28] MEDS: CEROVITE ADV FORMULA TAB PO SCH ×2 (09:00→21:01)
[2016-12-28] MEDS: PANTOprazole SOD 40 MG TAB PO SCH (09:34)
[2016-12-28] MEDS: ALPRAZOLAM 0.25 MG TAB PO SCH ×2 (09:34→21:01)
[2016-12-28] MEDS ORDERED: CEFAZOLIN SOD 1000MG/55 ML D5W IV ONE (13:46)
[2016-12-28] MEDS ORDERED: BUPIVACAINE/EPINEPHRINE 0.5% MPF 1:200,000 10 ML VIAL ONE (13:47)
[2016-12-28] MEDS ORDERED: FENTANYL CITRATE INJ 50 MCG/1 ML 2 ML VIAL ONE (13:48)
[2016-12-28] MEDS ORDERED: ONDANSETRON INJ 2 MG/ML 2 ML VIAL ONE (13:48)
[2016-12-28] MEDS ORDERED: DEXAMETHASONE SOD INJ 4 MG/ML VIAL ONE (13:48)
[2016-12-28] MEDS ORDERED: ROCURONIUM BROMIDE 10 MG/ML 5 ML VIAL ONE (13:48)
[2016-12-28] MEDS ORDERED: PROPOFOL IV EMULSION 10 MG/ML 20 ML VIAL IV ONE (13:48)
[2016-12-28] MEDS ORDERED: LIDOCAINE HCL 2% 2 ML VIAL (20MG/ML) ONE (13:48)
--- NOTE | 2016-12-28 13:48 | History & Physical Bridge Note ---
H&P Re-Evaluation Bridge Note: I have examined the patient, reviewed the History & Physical and in the interval since the performance of the History & Physical I have noted the following changes of clinical significance: No changes noted
[2016-12-28] MEDS ORDERED: NURSING VERBAL MED ORDER ONE (14:00)
[2016-12-28] MEDS ORDERED: BUPIVACAINE 0.5 % 5 MG/1 ML MPF 30ML VIAL ONE (14:14)
--- NOTE | 2016-12-28 14:37 | ECHOCARDIOGRAM REPORT ---
*NOTICE TO RECEIVING [employer] This information is strictly Confidential and protected under [place] law. [place] law prohibits you from making any further disclosure of this information unless further disclosure is expressly permitted by the written consent of the person to whom it pertains or is authorized by law. A general authorization for the release of medical or other information is not sufficient for this purpose. Hospital accepts no responsibility if the information is made available to any other person, INCLUDING THE PATIENT. Interpretation Summary * Name: BENNY KEENAN Study Date: 12/28/2016 08:10 AM BP: 114/66 mmHg * Patient Location: C.MSN\S\N386\S\2 HR: 75 * : 1930 (M/d/yyy) Gender: Female Height: 62 in * Age: 86 yrs Ethnicity: [place] Weight: 130 lb * Ordering Physician: Medardo Ding * Referring Physician: Self, Referred * Performed By: Frances Rader RCS * * Reason For Study: PRE-OP / MURMUR / R HIP FX * BSA: 1.6 m2 * -- Conclusions -- * Normal LV chamber size with mild concentric LVH, sigmoid appearing septum. * Normal LV systolic function, EF 60-65%. * No segmental left ventricular wall motion abnormalities are noted. * Grade I diastolic dysfunction. * Aortic valve sclerosis moderate, without significant aortic valvular stenosis. * Mild mitral annular calcifications. Procedure Details * A complete two-dimensional transthoracic echocardiogram was performed (2D, M-mode, Doppler and color flow Doppler). Left Ventricle * The left ventricle is normal in size. * There is mild concentric left ventricular hypertrophy. * The basal septum is thickened and angulated consistent with sigmoid septum. * Ejection Fraction = 60-65%. * Left ventricular systolic function is normal. * No segmental left ventricular wall motion abnormalities are noted. * The left ventricular wall motion is normal. Right Ventricle * The right ventricular cavity size is normal (basal dimension <4.2 cm in right ventricular apical 4-chamber view). * The right ventricular systolic function is normal as assessed by tricuspid annular plane systolic excursion (TAPSE) (normal >1.5 cm). Atria * The left atrial size is normal. * Right atrial size is normal. * No ASD detected; PFO is not assessed. Mitral Valve * There is mild mitral annular calcification. * There is no mitral valve stenosis. * There is no mitral regurgitation noted. Tricuspid Valve * The tricuspid valve is normal in structure and function. Aortic Valve * The aortic valve is trileaflet. * Aortic valve sclerosis moderate, without significant aortic valvular stenosis. * There is no significant aortic regurgitation. Pulmonic Valve * The pulmonary valve is not well seen, but the Doppler examination is normal without significant regurgitation or stenosis. Great Vessels * The aortic root is normal size. Pericardium/Pleural * There is no pericardial effusion. Left Ventricular Diastolic Function * Grade I diastolic dysfunction, (abnormal relaxation pattern). MMode 2D Measurements and Calculations IVSd 1.2 cm IVSs 1.5 cm LVIDd 3.1 cm LVIDs 1.7 cm LVPWd 1.2 cm LVPWs 1.3 cm IVS/LVPW 1.1 FS 43.5 % EDV(Teich) 37.5 ml ESV(Teich) 8.9 ml EF(Teich) 76.2 % EDV(cubed) 29.4 ml ESV(cubed) 5.3 ml EF(cubed) 82.0 % % IVS thick 20.0 % % LVPW thick 11.6 % LV mass(C)d 114.0 grams LV mass(C)dI 71.6 grams/m\S\2 LV mass(C)s 73.6 grams LV mass(C)sI 46.3 grams/m\S\2 SV(Teich) 28.6 ml SI(Teich) 17.9 ml/m\S\2 SV(cubed) 24.1 ml SI(cubed) 15.1 ml/m\S\2 Ao root diam 2.7 cm Ao root area 5.8 cm\S\2 LA dimension 2.6 cm LA/Ao 0.96 LVOT diam 1.8 cm LVOT area 2.5 cm\S\2 LVAd ap4 22.7 cm\S\2 LVLd ap4 7.6 cm EDV(MOD-sp4) 56.1 ml EDV(sp4-el) 57.4 ml LVAs ap4 13.2 cm\S\2 LVLs ap4 6.9 cm ESV(MOD-sp4) 20.5 ml ESV(sp4-el) 21.4 ml EF(MOD-sp4) 63.4 % EF(sp4-el) 62.7 % LVAd ap2 26.8 cm\S\2 LVLd ap2 7.8 cm EDV(MOD-sp2) 74.7 ml EDV(sp2-el) 78.2 ml LVAs ap2 16.0 cm\S\2 LVLs ap2 7.0 cm ESV(MOD-sp2) 30.0 ml ESV(sp2-el) 31.2 ml EF(MOD-sp2) 59.9 % EF(sp2-el) 60.1 % LVLd %diff 2.4 % EDV(MOD-bp) 65.3 ml LVLs %diff 1.3 % ESV(MOD-bp) 24.6 ml EF(MOD-bp) 62.4 % SV(MOD-sp4) 35.6 ml SI(MOD-sp4) 22.4 ml/m\S\2 SV(MOD-sp2) 44.8 ml SI(MOD-sp2) 28.1 ml/m\S\2 SV(MOD-bp) 40.8 ml SI(MOD-bp) 25.6 ml/m\S\2 SV(sp4-el) 36.0 ml SI(sp4-el) 22.6 ml/m\S\2 SV(sp2-el) 47.0 ml SI(sp2-el) 29.5 ml/m\S\2 Doppler Measurements and Calculations MV E max tommie 76.0 cm/sec MV A max tommie 133.7 cm/sec MV E/A 0.57 MV P1/2t max tommie 102.4 cm/sec MV P1/2t 63.8 msec MVA(P1/2t) 3.4 cm\S\2 MV dec slope 469.8 cm/sec\S\2 MV dec time 0.11 sec Ao V2 max 258.9 cm/sec Ao max PG 26.8 mmHg Ao max PG (full) 6.1 mmHg Ao V2 mean 172.0 cm/sec Ao mean PG 13.8 mmHg Ao mean PG (full) 1.3 mmHg Ao V2 VTI 59.7 cm FILOMENA(I,A) 2.1 cm\S\2 FILOMENA(I,D) 2.1 cm\S\2 FILOMENA(V,A) 2.2 cm\S\2 FILOMENA(V,D) 2.2 cm\S\2 LV V1 max PG 20.7 mmHg LV V1 mean PG 12.5 mmHg LV V1 max 227.7 cm/sec LV V1 mean 164.3 cm/sec LV V1 VTI 49.4 cm MR max tommie 273.1 cm/sec MR max PG 29.8 mmHg SV(Ao) 346.2 ml SI(Ao) 217.5 ml/m\S\2 SV(LVOT) 125.6 ml SI(LVOT) 78.9 ml/m\S\2 TR max tommie 293.1 cm/sec
[2016-12-28] MEDS ORDERED: ETOMIDATE 2 MG/ML 20 ML VIAL IV ONE (14:59)
[2016-12-28] MEDS ORDERED: EpHEDrine SULFATE 50MG/5ML SYR ONE (14:59)
[2016-12-28] MEDS ORDERED: CEFAZOLIN SOD 1 GM VIAL ONE (15:04)
[2016-12-28] MEDS ORDERED: EpHEDrine SULFATE INJ 50 MG/ML AMP IV PRN (16:00)
[2016-12-28] MEDS ORDERED: NALOXONE HCL 0.4 MG/1 ML VIAL/CARP IV PRN (16:00)
[2016-12-28] MEDS ORDERED: PROMETHAZINE HCL INJ 12.5 MG in SODIUM CHLORIDE 0.9% 50ML 50 ML IV PRN (16:00)
[2016-12-28] MEDS ORDERED: FLUMAZENIL 0.1 MG/1 ML 10 ML VIAL IV PRN (16:00)
[2016-12-28] MEDS ORDERED: LABETALOL HCL IV 5 MG/ML 20ML IV PRN (16:00)
[2016-12-28] MEDS ORDERED: ATROPINE SULFATE 0.1 MG/ML 5ML SYR IV PRN (16:00)
[2016-12-28] MEDS ORDERED: ONDANSETRON INJ 2 MG/ML 2 ML VIAL IV PRN (16:00)
[2016-12-28] MEDS ORDERED: GLYCOPYRROLATE INJ 0.2 MG/ML VIAL ONE (16:30)
[2016-12-28] MEDS ORDERED: NEOSTIGMINE METHYLSULFATE 5 MG/5 ML SYR ONE ×2 (16:30→16:31)
--- NOTE | 2016-12-28 16:40 | [facility] Post Operative Brief Note ---
Immediate Operative Summary Operative Date Dec 28, 2016. Pre-Operative Diagnosis Right Intertrochanteric Hip Fracture Post-Operative Diagnosis Same as preoperative diagnosis Procedure(s) Performed Right Intertrochanteric Hip Nailing Surgeon Dr. Luu Cruise Counselor Surgeon(s) Evangelina Garcia PAChonC Estimated Blood Loss 50ml Findings intertroch fx Specimens none Anesthesia gen Complication(s) None Disposition Recovery Room / PACU
--- NOTE | 2016-12-28 16:58 | [facility] Operative Report ---
Operative Report Operative Date Dec 28, 2016. Pre-Operative Diagnosis Right Intertrochanteric Hip Fracture Post-Operative Diagnosis same Procedure(s) Performed Right intramedullary hip nail for intertrochanteric four-part hip fracture Surgeon Dr. Luu Costume Mistress Surgeon(s) Evangelina Garcia PA-C Estimated Blood Loss 50ml Findings Displaced intertrochanteric fracture of the hip on the right Specimens none Drains none Anesthesia gen Complication(s) none Disposition Recovery Room / PACU Indications This is a 86-year-old female who sustained an intertrochanteric hip fracture. She sustained a mechanical fall at home and feels that her leg gave out prior to fracture. Radiographs document a intratrochanteric fracture with significant displacement. The lesser trochanter and the greater trochanter are off. I discussed with her the family risks and benefits of surgery including but not limited to risk of infection nonunion stiffness failure to improve leg length discrepancy in her further surgery decrease in ambulatory status etc. she is agreeable and wishes to proceed. Description of Procedure Patient was placed in a fracture table and traction and reduction maneuver was applied, this resulted in partial reduction of the lateral but very good reduction on the AP view. The patient was prepped in the standard fashion and given preoperative antibiotics prior to skin incision. I made a lateral incision approximately 2 fingerbreadths proximal to the tip of the trochanter dissection was carried down through the skin and subcutaneous tissue. I incised the fascial layer and a guidewire was placed to the tip of the trochanter. This was then driven into the femur, into the intramedullary canal at the appropriate angle. This was checked in multiple views of C-arm fluoroscopy and this was in good position. Once this was accomplished I reamed up to a size 12. I then placed a size 11 Synthes trochanteric femoral nail, mid length. This was placed into the femur checked in multiple views of fluoroscopy. This was in good position. Once this was accomplished I made an incision for the helical blade. The guides for the helical blade were then placed down to the level of the femur. I then elevated the handle to allow for better alignment of the femur and femoral neck. This resulted in acceptable alignment. I didn't place a guidewire in the center center position of the femoral head taking care to minimize the tip to apex distance. The guidewire was in width in 1 cm of subchondral bone. With the guidewire was place I then drilled with the appropriate to drills. The trochanteric femoral nail was then placed and this was impacted into the bone. I then compressed the fracture and this resulted in adequate compression. Alignment was good. A interlocking screw is placed with the standard jig and this is verified to be across the nail. The nail was locked in place prior to compression. The guides were withdrawn and incisions were irrigated the fascial layers closed with #1 Vicryl. 2-0 Vicryl was used in the subcutaneous tissues, veda are used on skin patient was sent to the PACU in satisfactory condition I discussed the case in detail with the patient's family. Postoperative plan will be partial weightbearing with a walker and the Lovenox for anticoagulation. And I attest to the content of the Intraoperative Record and any orders documented therein. Any exceptions are noted below.
[2016-12-28] MEDS ORDERED: TRAMADOL HCL 50 MG TAB PO PRN (17:00)
[2016-12-28] MEDS: HYDROmorphone INJ 1 MG/ML SYR IV PRN ×2 (17:05→17:12)
--- NOTE | 2016-12-28 17:16 | DIAGNOSTIC IMAGING REPORT ---
RIGHT HIP OR FILMS CLINICAL HISTORY: RT TROCH NAIL Right COMPARISON STUDY: Right hip 12/27/2016. FLUOROSCOPY TIME: 263 seconds. FINDINGS: 3 fluoroscopic spot images. There is a short intramedullary sabi within the proximal right femur with an interlocking femoral neck pin. This transfixes the right intertrochanteric fracture. The hardware appears intact. The alignment is improved. IMPRESSION: Fluoroscopy provided for internal fixation of a right intertrochanteric hip fracture. Electronically signed by: Franklin De La Cruz M.D. 12/28/2016 5:15 PM Dictated Date/Time: 12/28/2016 5:12 PM
--- NOTE | 2016-12-28 17:25 | Anesthesiology Progress Note ---
Anesthesia Post Op Note Date & Time Dec 28, 2016 at 17:25 Vital Signs Pain Intensity: 3 Vital Signs Past 12 Hours Date Time Temp Pulse Resp B/P (MAP) Pulse Ox O2 Delivery O2 Flow Rate FiO2 12/28/16 17:15 58 15 129/58 100 Nasal Cannula 2 12/28/16 17:05 65 17 121/60 100 Oxymask 8 12/28/16 16:55 64 16 132/64 100 Oxymask 10 12/28/16 16:46 36.3 63 16 133/64 100 Oxymask 10 12/28/16 07:30 37.2 77 16 114/66 (82) 95 Room Air 12/28/16 07:15 Room Air Notes Mental Status: alert / awake / arousable, participated in evaluation Pt Amnestic to Procedure: Yes Nausea / Vomiting: adequately controlled Pain: adequately controlled Airway Patency, RR, SpO2: stable & adequate BP & HR: stable & adequate Hydration State: stable & adequate Anesthetic Complications: no major complications apparent
--- NOTE | 2016-12-28 17:25 | DIAGNOSTIC IMAGING REPORT ---
RIGHT HIP UNILATERAL 2 VIEWS CLINICAL HISTORY: intertrochanter fx Right. Postop. COMPARISON STUDY: Right hip 12/27/2016. FINDINGS: The patient is status post internal fixation of a right femoral intertrochanteric fracture. The hardware appears intact. There is improved anatomic alignment. Skin veda are noted. IMPRESSION: Improved anatomic alignment status post internal fixation of a right intertrochanteric hip fracture. Electronically signed by: Franklin De La Cruz M.D. 12/28/2016 5:23 PM Dictated Date/Time: 12/28/2016 5:22 PM
--- NOTE | 2016-12-28 17:28 | DIAGNOSTIC IMAGING REPORT ---
RIGHT SHOULDER 3 VIEWS HISTORY: RIGHT SHOULD DISCOMFORT; FALL Right COMPARISON: None. FINDINGS: There is no fracture or dislocation. Soft tissues are unremarkable. No radiopaque foreign bodies. The right clavicle is intact. Flattening and lucency at the medial aspect of the humeral head suggestive of chronic avascular necrosis. There is superimposed moderate to severe osteoarthritis. IMPRESSION: No fractures. 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 Electronically signed by: Franklin De La Cruz M.D. 12/28/2016 5:27 PM Dictated Date/Time: 12/28/2016 5:25 PM
[2016-12-28 18:23] VITALS: BP 107/65; PULSE 58; TEMP 36.3; O2SAT 100
[2016-12-28 18:50] VITALS: BP 115/71; PULSE 75; TEMP 36.3; O2SAT 100
[2016-12-28 19:50] VITALS: BP 112/61; PULSE 73; TEMP 36.5; O2SAT 100
[2016-12-28 20:49] VITALS: BP 117/70; PULSE 87; TEMP 36.7; O2SAT 96
[2016-12-28] MEDS: DULOXETINE (CYMBALTA) 30 MG CAP PO SCH (21:01)
[2016-12-28] MEDS: DOCUSATE SODIUM/SENNA 50/8.6MG TAB PO SCH (21:01)
--- NOTE | 2016-12-28 21:05 | Progress Note ---
Medicine Progress Note Date & Time of Visit: Dec 28, 2016 at 20:30 . Subjective Right intramedullary hip nail for intertrochanteric four-part hip fracture performed today by Dr. Luu. Doing well postoperatively. No chest pain. No cough or dyspnea. No nausea or vomiting. Has Mosqueda catheter. Postop pain well-controlled. . Objective Last 8 Hrs Date Time Temp Pulse Resp B/P (MAP) Pulse Ox O2 Delivery O2 Flow Rate FiO2 12/28/16 20:49 36.7 87 18 117/70 (86) 96 Nasal Cannula 2.0 12/28/16 19:50 36.5 73 18 112/61 (78) 100 Nasal Cannula 2.0 12/28/16 18:50 36.3 75 18 115/71 (86) 100 Nasal Cannula 2.0 12/28/16 18:23 36.3 58 16 107/65 (79) 100 Nasal Cannula 2.0 12/28/16 17:50 Nasal Cannula 2.0 12/28/16 17:50 97 Nasal Cannula 2.0 12/28/16 17:25 36.2 61 20 132/59 100 Nasal Cannula 2 12/28/16 17:15 58 15 129/58 100 Nasal Cannula 2 12/28/16 17:05 65 17 121/60 100 Oxymask 8 12/28/16 16:55 64 16 132/64 100 Oxymask 10 12/28/16 16:46 36.3 63 16 133/64 100 Oxymask 10 Physical Exam: General- no distress Neck- no JVD Lungs- clear Heart- RRR, III/ systolic murmur at base Abdomen- + BS, soft, nontender Extremities- no pretibial edema or calf tenderness Neuro- alert . Laboratory Results: Last 24 Hours Test 12/27/16 22:25 12/28/16 06:47 Sodium Level 135 mmol/L 133 mmol/L Osmolality 280 mOsm/kg 25-Hydroxy Vitamin D Total 44.2 ng/ml Potassium Level 4.1 mmol/L Chloride Level 97 mmol/L Carbon Dioxide Level 29 mmol/L Anion Gap 7.0 mmol/L Blood Urea Nitrogen 15 mg/dl Creatinine 0.48 mg/dl Est Creatinine Clear Calc Drug Dose 66.6 ml/min Estimated GFR () 102.9 Estimated GFR (Non- 88.8 BUN/Creatinine Ratio 31.5 Random Glucose 105 mg/dl Calcium Level 8.1 mg/dl Date/Time Source Procedure Growth Status 12/27/16 22:40 Nasal MRSA DNA Surveillance Screen - Final Specimen Negative for MRSA by DNA Probe Complete Assessment & Plan RIGHT INTERTROCHANTERIC HIP FRACTURE Right intramedullary hip nail performed by Dr. Luu. Doing well postoperatively. Analgesics, PT, OT. SYSTOLIC HEART MURMUR Echo showed aortic sclerosis without significant stenosis. PARKINSON'S DISEASE Continue Sinemet. VTE PROPHYLAXIS SQ enoxaparin. Ambulate. DISPOSITION To be determined. Internal Medicine follow-up with Dr. Milian. . Current Inpatient Medications: Current Inpatient Medications Medications (Trade) Dose Ordered Sig/Tonie Route Start Time Stop Time Status Last Admin Dose Admin Alprazolam (Xanax Tab) 0.25 mg BID PO 12/28/16 09:00 01/27/17 08:59 12/28/16 09:34 0.25 MG Duloxetine HCl (Cymbalta Cap) 30 mg HS PO 12/28/16 21:00 01/27/17 20:59 Multivitamins (Multivitamin Tab) 1 tab DAILY PO 12/28/16 09:00 01/27/17 08:59 Multivitamins/ Minerals (Multivitamin W/ Minerals Tab) 1 tab BID PO 12/28/16 09:00 01/27/17 08:59 Pantoprazole Sodium (Protonix Tab) 40 mg DAILY PO 12/28/16 09:00 01/27/17 08:59 12/28/16 09:34 40 MG Sodium Chloride 1,000 ml @ 40 mls/hr Q24H IV 12/27/16 22:00 01/26/17 21:59 12/27/16 23:36 40 MLS/HR Ondansetron HCl (Zofran Inj) 4 mg Q6H PRN IV 12/27/16 22:00 01/26/17 21:59 Morphine Sulfate (MoRPHine SULFATE INJ) 4 mg Q3H PRN IV 12/27/16 22:00 01/10/17 21:59 12/27/16 23:37 4 MG Acetaminophen (Tylenol Tab) 650 mg Q4H PRN PO 12/27/16 22:00 01/26/17 21:59 Naloxone HCl (Narcan Inj) 0.1 mg PRN PRN IV 12/27/16 22:00 01/26/17 21:59 Senna/Docusate Sodium (Senokot S Tab) 2 tab HS PO 12/28/16 21:00 01/27/17 20:59 Polyethylene (Miralax Powder Packet) 17 gm DAILY PRN PO 12/27/16 22:00 01/26/17 21:59 Magnesium Hydroxide (Milk Of Magnesia Susp) 30 ml DAILY PRN PO 12/27/16 22:00 01/26/17 21:59 Bisacodyl (Dulcolax Supp) 10 mg DAILY PRN [place] 12/27/16 22:00 01/26/17 21:59 Sodium Biphosphate/ Sodium Phosphate (Fleet Enema) 132 ml PRN PRN [place] 12/27/16 22:00 Carbidopa/Levodopa (Sinemet 25/ 100MG Tab) 2 tab 5XDQ4H PO 12/28/16 07:00 01/27/17 06:59 12/28/16 19:08 2 TAB Entacapone (Comtan) 400 mg 5XDQ4H PO 12/28/16 07:00 01/27/17 06:59 12/28/16 19:07 400 MG Hydromorphone HCl (Dilaudid Inj) 0.2 mg Q5M PRN IV 12/28/16 16:00 12/28/16 21:00 12/28/16 17:12 0.2 MG Naloxone HCl (Narcan Inj) 0.2 mg Q2M PRN IV 12/28/16 16:00 12/28/16 21:00 Flumazenil (Romazicon Inj) 0.2 mg Q2M PRN IV 12/28/16 16:00 12/28/16 21:00 Ondansetron HCl (Zofran Inj) 4 mg ONE PRN IV 12/28/16 16:00 12/28/16 21:00 Promethazine HCl 12.5 mg/Sodium Chloride 50.5 ml @ 202 mls/hr ONE PRN IV 12/28/16 16:00 12/28/16 21:00 Labetalol HCl (Normodyne IV) 5 mg Q5M PRN IV 12/28/16 16:00 12/28/16 21:00 Ephedrine Sulfate (EpHEDrine SULFATE INJ) 5 mg Q5M PRN IV 12/28/16 16:00 12/28/16 21:00 Atropine Sulfate (Atropine Sulfate 0.1MG/Ml Inj) 0.5 mg Q1M PRN IV 12/28/16 16:00 12/28/16 21:00 Enoxaparin Sodium (Lovenox Inj) 40 mg QAM SQ 12/29/16 09:00 01/28/17 08:59 Tramadol HCl (Ultram Tab) @ Q4H PRN PO 12/28/16 17:00 01/27/17 16:59 Oxycodone HCl (Roxicodone Immediate Rel Tab) 5 mg Q6HWA PRN PO 12/28/16 17:00 01/11/17 16:59 Cefazolin Sodium 1000 mg/Dextrose 55 ml @ 100 mls/hr Q8H IV 12/28/16 22:00 12/29/16 06:32
[2016-12-28] MEDS: SODIUM CHLORIDE 0.9% 1000ML 1,000 ML IV SCH (22:22)
[2016-12-28] MEDS: CEFAZOLIN IV 1,000 MG in DEXTROSE 5% 50ML 50 ML IV SCH (22:22)
[2016-12-28 23:14] VITALS: BP 119/69; PULSE 92; TEMP 37.1; O2SAT 97
[2016-12-29 03:28] VITALS: BP 106/65; PULSE 86; TEMP 37.1; O2SAT 98
[2016-12-29] MEDS: CEFAZOLIN IV 1,000 MG in DEXTROSE 5% 50ML 50 ML IV SCH (06:07)
[2016-12-29] MEDS: CARBIDOPA/LEVODOPA 25/100MG TAB PO SCH ×5 (06:08→22:25)
[2016-12-29] MEDS: ENTACAPONE 200 MG TAB PO SCH ×5 (06:08→22:25)
[2016-12-29 07:01] LABS: BUN/CREATININE RATIO 22.3 (10-20); CREATININE 0.5 mg/dl (0.60-1.20); POTASSIUM 4.7 mmol/L (3.5-5.1)
[2016-12-29 07:02] VITALS: BP 104/65; PULSE 82; TEMP 36.4; O2SAT 97
[2016-12-29 07:02] LABS: CALCIUM 8.8 mg/dl (8.5-10.1)
[2016-12-29 07:08] LABS: HEMATOCRIT 28.8 % (37-47); MEAN CORPUSCULAR HEMOGLOBIN 31.3 pg (25-34); MEAN PLATELET VOLUME 8.4 fL (7.4-10.4); PLATELET COUNT 235 K/uL (130-400); RED BLOOD COUNT 3.13 M/uL (4.2-5.4); WHITE BLOOD COUNT 9.56 K/uL (4.8-10.8)
--- NOTE | 2016-12-29 07:37 | Orthopedic Progress Note ---
Orthopedic Progress Note Date of Service Dec 29, 2016. Subjective Post OP Day: 1 Reports: feeling well Additional Notes: mouth is dry, no other complaints Objective right thigh is soft, minimal swelling dressings c/d/i grossly neuro intact calf soft Date Time Temp Pulse Resp B/P (MAP) Pulse Ox O2 Delivery O2 Flow Rate FiO2 12/29/16 07:02 36.4 82 18 104/65 (78) 97 Room Air 12/29/16 03:28 37.1 86 16 106/65 (79) 98 Room Air 12/29/16 00:00 Room Air 12/28/16 23:14 37.1 92 16 119/69 (86) 97 Nasal Cannula 2.0 12/28/16 20:49 36.7 87 18 117/70 (86) 96 Nasal Cannula 2.0 12/28/16 19:50 36.5 73 18 112/61 (78) 100 Nasal Cannula 2.0 12/28/16 18:50 36.3 75 18 115/71 (86) 100 Nasal Cannula 2.0 12/28/16 18:23 36.3 58 16 107/65 (79) 100 Nasal Cannula 2.0 12/28/16 17:50 Nasal Cannula 2.0 12/28/16 17:50 97 Nasal Cannula 2.0 12/28/16 17:25 36.2 61 20 132/59 100 Nasal Cannula 2 12/28/16 17:15 58 15 129/58 100 Nasal Cannula 2 12/28/16 17:05 65 17 121/60 100 Oxymask 8 12/28/16 16:55 64 16 132/64 100 Oxymask 10 12/28/16 16:46 36.3 63 16 133/64 100 Oxymask 10 Laboratory Results 24 Hours: Test 12/29/16 06:04 Hematocrit 28.8 % Hemoglobin 9.8 g/dL Assessment & Plan Assessment: Post op day #1 IM hip nail Plan: May be PWB with a walker up today with PT ok to start lovenox for Dvt prevention heel procection teds/scds Discharge Planning Discharge Planning: uncertain Pain Management: other (no pain meds needed yet after surgery) DVT Prophylaxis: TEDs, SCDs, Lovenox Therapy: Physical Therapy
[2016-12-29] MEDS: CEROVITE ADV FORMULA TAB PO SCH ×2 (09:15→20:49)
[2016-12-29] MEDS: MULTIVITAMIN TAB PO SCH (09:15)
[2016-12-29] MEDS: ALPRAZOLAM 0.25 MG TAB PO SCH ×2 (09:15→20:49)
[2016-12-29] MEDS: PANTOprazole SOD 40 MG TAB PO SCH (09:15)
[2016-12-29] MEDS: OXYCODONE HCL IR 5 MG TAB (IMMEDIATE RELEASE) PO PRN ×2 (09:16→19:58)
[2016-12-29] MEDS: ENOXAPARIN 40 MG/0.4 ML SYR SQ SCH (09:17)
--- NOTE | 2016-12-29 10:28 | Anesthesiology Progress Note ---
Anesthesia Post Op Note Date & Time Dec 29, 2016 at 10:28 Vital Signs Vital Signs Past 12 Hours Date Time Temp Pulse Resp B/P (MAP) Pulse Ox O2 Delivery O2 Flow Rate FiO2 12/29/16 07:02 36.4 82 18 104/65 (78) 97 Room Air 12/29/16 03:28 37.1 86 16 106/65 (79) 98 Room Air 12/29/16 00:00 Room Air 12/28/16 23:14 37.1 92 16 119/69 (86) 97 Nasal Cannula 2.0 Notes Mental Status: alert / awake / arousable, participated in evaluation Pt Amnestic to Procedure: Yes Nausea / Vomiting: adequately controlled Pain: adequately controlled Airway Patency, RR, SpO2: stable & adequate BP & HR: stable & adequate Hydration State: stable & adequate Anesthetic Complications: no major complications apparent
[2016-12-29 15:23] VITALS: BP 108/61; PULSE 85; TEMP 36.9; O2SAT 98
[2016-12-29] MEDS ORDERED: NURSING DECISION MEDICATION ORDER SCH (19:15)
[2016-12-29] MEDS: DOCUSATE SODIUM/SENNA 50/8.6MG TAB PO SCH (20:49)
[2016-12-29] MEDS: DULOXETINE (CYMBALTA) 30 MG CAP PO SCH (20:50)
--- NOTE | 2016-12-29 21:03 | Progress Note ---
Medicine Progress Note Date & Time of Visit: Dec 29, 2016 at 12:00 . Subjective Doing well postoperatively. No chest pain. Occasional mild cough, no dyspnea. No nausea or vomiting. No BM since surgery. Postop pain well-controlled. Family visiting. . Objective Last 8 Hrs Date Time Temp Pulse Resp B/P (MAP) Pulse Ox O2 Delivery O2 Flow Rate FiO2 12/29/16 07:02 36.4 82 18 104/65 (78) 97 Room Air Physical Exam: General- no distress Neck- no JVD Lungs- clear Heart- RRR, III/ systolic murmur at base Abdomen- + BS, soft, nontender Extremities- no pretibial edema or calf tenderness Neuro- alert . Laboratory Results: Last 24 Hours Test 12/29/16 06:04 White Blood Count 9.56 K/uL Red Blood Count 3.13 M/uL Hemoglobin 9.8 g/dL Hematocrit 28.8 % Mean Corpuscular Volume 92.0 fL Mean Corpuscular Hemoglobin 31.3 pg Mean Corpuscular Hemoglobin Concent 34.0 g/dl RDW Standard Deviation 44.5 fL RDW Coefficient of Variation 13.2 % Platelet Count 235 K/uL Mean Platelet Volume 8.4 fL Sodium Level 134 mmol/L Potassium Level 4.7 mmol/L Chloride Level 99 mmol/L Carbon Dioxide Level 30 mmol/L Anion Gap 5.0 mmol/L Blood Urea Nitrogen 11 mg/dl Creatinine 0.50 mg/dl Est Creatinine Clear Calc Drug Dose 63.9 ml/min Estimated GFR () 101.6 Estimated GFR (Non- 87.6 BUN/Creatinine Ratio 22.3 Random Glucose 107 mg/dl Calcium Level 8.8 mg/dl Assessment & Plan RIGHT INTERTROCHANTERIC HIP FRACTURE Right intramedullary hip nail performed by Dr. Luu. Doing well postoperatively. Continue analgesics, PT, OT. OSTEOPOROSIS 25-OH vitamin D level = 44. Discharge on calcium + D. ANEMIA Hgb 13.6 --> 9.8. Acute blood loss anemia secondary to hip fracture. Discharge on FeSO4. SYSTOLIC HEART MURMUR Echo showed aortic sclerosis without significant stenosis. PARKINSON'S DISEASE Continue Sinemet. VTE PROPHYLAXIS SQ enoxaparin. Ambulate. DISPOSITION Will need skilled care. Case Management consulted. Internal Medicine follow-up with Dr. Milian. . Current Inpatient Medications: Current Inpatient Medications Medications (Trade) Dose Ordered Sig/Tonie Route Start Time Stop Time Status Last Admin Dose Admin Alprazolam (Xanax Tab) 0.25 mg BID PO 12/28/16 09:00 01/27/17 08:59 12/29/16 09:15 0.25 MG Duloxetine HCl (Cymbalta Cap) 30 mg HS PO 12/28/16 21:00 01/27/17 20:59 12/28/16 21:01 30 MG Multivitamins (Multivitamin Tab) 1 tab DAILY PO 12/28/16 09:00 01/27/17 08:59 12/29/16 09:15 1 TAB Multivitamins/ Minerals (Multivitamin W/ Minerals Tab) 1 tab BID PO 12/28/16 09:00 01/27/17 08:59 12/29/16 09:15 1 TAB Pantoprazole Sodium (Protonix Tab) 40 mg DAILY PO 12/28/16 09:00 01/27/17 08:59 12/29/16 09:15 40 MG Sodium Chloride 1,000 ml @ 40 mls/hr Q24H IV 12/27/16 22:00 01/26/17 21:59 12/28/16 22:22 40 MLS/HR Ondansetron HCl (Zofran Inj) 4 mg Q6H PRN IV 12/27/16 22:00 01/26/17 21:59 Morphine Sulfate (MoRPHine SULFATE INJ) 4 mg Q3H PRN IV 12/27/16 22:00 01/10/17 21:59 12/27/16 23:37 4 MG Acetaminophen (Tylenol Tab) 650 mg Q4H PRN PO 12/27/16 22:00 01/26/17 21:59 Naloxone HCl (Narcan Inj) 0.1 mg PRN PRN IV 12/27/16 22:00 01/26/17 21:59 Senna/Docusate Sodium (Senokot S Tab) 2 tab HS PO 12/28/16 21:00 01/27/17 20:59 12/28/16 21:01 2 TAB Polyethylene (Miralax Powder Packet) 17 gm DAILY PRN PO 12/27/16 22:00 01/26/17 21:59 Magnesium Hydroxide (Milk Of Magnesia Susp) 30 ml DAILY PRN PO 12/27/16 22:00 01/26/17 21:59 Bisacodyl (Dulcolax Supp) 10 mg DAILY PRN [place] 12/27/16 22:00 01/26/17 21:59 Sodium Biphosphate/ Sodium Phosphate (Fleet Enema) 132 ml PRN PRN [place] 12/27/16 22:00 Carbidopa/Levodopa (Sinemet 25/ 100MG Tab) 2 tab 5XDQ4H PO 12/28/16 07:00 01/27/17 06:59 12/29/16 09:25 2 TAB Entacapone (Comtan) 400 mg 5XDQ4H PO 12/28/16 07:00 01/27/17 06:59 12/29/16 09:24 400 MG Enoxaparin Sodium (Lovenox Inj) 40 mg QAM SQ 12/29/16 09:00 01/28/17 08:59 12/29/16 09:17 40 MG Tramadol HCl (Ultram Tab) @ Q4H PRN PO 12/28/16 17:00 01/27/17 16:59 Oxycodone HCl (Roxicodone Immediate Rel Tab) 5 mg Q6HWA PRN PO 12/28/16 17:00 01/11/17 16:59 12/29/16 09:16 5 MG
[2016-12-29 23:03] VITALS: BP 116/61; PULSE 85; TEMP 37.3; O2SAT 95
[2016-12-30] MEDS: CARBIDOPA/LEVODOPA 25/100MG TAB PO SCH ×3 (06:34→15:06)
[2016-12-30] MEDS: ENTACAPONE 200 MG TAB PO SCH ×3 (06:34→15:06)
[2016-12-30 06:55] LABS: HEMATOCRIT 25.1 % (37-47)
[2016-12-30 07:32] LABS: CALCIUM 8.4 mg/dl (8.5-10.1)
[2016-12-30 07:33] LABS: BUN/CREATININE RATIO 31.6 (10-20); CREATININE 0.37 mg/dl (0.60-1.20); POTASSIUM 4.2 mmol/L (3.5-5.1)
[2016-12-30 07:35] VITALS: BP 114/68; PULSE 84; TEMP 37; O2SAT 97
[2016-12-30 08:15] VITALS: O2SAT 97
[2016-12-30] MEDS: CEROVITE ADV FORMULA TAB PO SCH (08:59)
[2016-12-30] MEDS: ENOXAPARIN 40 MG/0.4 ML SYR SQ SCH (08:59)
[2016-12-30] MEDS: ALPRAZOLAM 0.25 MG TAB PO SCH (08:59)
[2016-12-30] MEDS: PANTOprazole SOD 40 MG TAB PO SCH (08:59)
[2016-12-30] MEDS: MULTIVITAMIN TAB PO SCH (09:00)
[2016-12-30] MEDS: OXYCODONE HCL IR 5 MG TAB (IMMEDIATE RELEASE) PO PRN (09:00)
--- NOTE | 2016-12-30 10:29 | Orthopedic Progress Note ---
Orthopedic Progress Note Date of Service Dec 30, 2016. Subjective Post OP Day: 2 Reports: feeling well, Denies: chest pain, SOB, nausea / vomiting, light headedness Additional Notes: Pt awake, alert. Had some nausea ealier but seems to have resolved. Have some mild pain in the right knee and ankle. No other complaints. Wondering when she will be discharged to SNF. No other complaints at this time. Objective calves soft nontender, N/V intact, dressing C/D/I, toes mobile Thigh swollen but not tense. Right knee/ankle appears benign. Mild discomort with ROM. Date Time Temp Pulse Resp B/P (MAP) Pulse Ox O2 Delivery O2 Flow Rate FiO2 12/30/16 08:15 97 Room Air 12/30/16 07:35 37.0 84 18 114/68 (83) 97 Room Air 12/30/16 00:30 Room Air 12/29/16 23:03 37.3 85 16 116/61 (79) 95 Room Air 12/29/16 20:00 Room Air 12/29/16 15:45 Room Air 12/29/16 15:23 36.9 85 16 108/61 (77) 98 Room Air Laboratory Results 24 Hours: Test 12/30/16 06:43 Hematocrit 25.1 % Hemoglobin 8.3 g/dL Assessment & Plan Assessment: Post op day #2 Right TFN Acute Blood Loss Anemia Plan: PT/OT - PWB Planning for SNF upon DC Lovenox for DVT Prophylaxis Anemia due to fracture and surgery - transfuse as needed Knee/ankle discomfort likely due to being under traction during the surgery. Follow. Inhouse Planning Pain Management: Ultram, Morphine, Oxy IR DVT Prophylaxis: TEDs, SCDs, Lovenox Discharge Planning Discharge Planning: group home facility DVT Prophylaxis: TEDs, Lovenox Therapy: Physical Therapy
--- NOTE | 2016-12-30 10:31 | Consultant Recommendations ---
Assignment Agent Recommendations Date of Service Dec 30, 2016. Assignment Agent Recommendations [facility] [place] HIP FRACTURE SELF CARE INSTRUCTIONS: A. You are to ambulate with a walker or crutches for approximately 6 weeks. B. You are PARTIAL WEIGHT BEARING on your operative lower extremity for at least 6 weeks. C. Wear low heeled shoes with non-slip soles D. Be sure that your floors are free of things that could trip you throw rugs, electrical cords, and small objects. Avoid wet and waxed floors, especially with crutches/walker/cane. E. Try to walk several times a day with rest periods between. F. You may shower 48 hours after surgery and get the incision area wet, but DO NOT soak or submerge incision area in water. (No baths, swimming pools, hot tubs ) G. You may have a large, band-aid like dressing over your incision (Aquacel). This will remain on your incision for 7 days, and then can be removed. You CAN shower with this on. If incision is leaking through the dressing, please call the office . H. Do NOT apply soap or any ointment/lotions directly over incision. I. You may use ice as needed to operative site. SPECIAL CARE INSTRUCTIONS: VERY IMPORTANT TO READ AND REVIEW A. You may be at risk for phlebitis or blood clots. a. Wear surgical stockings (SIMONE hose) for 2 weeks after surgery to improve circulation and reduce swelling. b. Take LOVENOX 40mg SQ daily for 4 weeks or as directed. This is your blood thinner. c. If you are on Coumadin- you will have daily/weekly blood work to monitor your levels. This will be done by either your family physician/ field crop grower (if you are on Coumadin chronically) versus your orthopedic surgeon. Expect a phone call the day of or the day after your blood work is drawn to adjust your dose accordingly. B. There are a few signs you need to watch for after you are home. Call [facility] at [phone] if you experience any of the following: a. If you have a temperature of 101 degrees or higher. b. Sudden increase in pain in your hip not relieved by rest or pain medication. c. Any fluid or drainage from the incision; redness of the incision. d. Shortness of breath or chest pain. B. Please call [facility] at [phone] if you have any questions or concerns about your operation or recovery. C. Call your physician if: a. Temperature is greater than 101 degrees (F). b. Pain is not relieved by prescribed pain medications. c. Increase drainage or redness from incision. d. Unanswered questions or concerns. D. Pain Medication: a. You will be prescribed pain medication upon discharge that should last till your first post-operative appointment. b. If you experience nausea and/or skin rash, discontinue this medication and contact our office for an alternative medication. c. Caution- narcotic pain medication can cause constipation. FOLLOW UP VISIT: Please call [facility] at [phone] to schedule a follow up appointment 10-14 days from the date of your surgery date.
[2016-12-30 11:07] VITALS: BP 114/68; PULSE 84; TEMP 37; O2SAT 97
--- NOTE | 2016-12-30 12:18 | Progress Note ---
Medicine Progress Note Date & Time of Visit: Dec 30, 2016 at 11:50 . Subjective Doing well postoperatively. No fever. No chest pain. Minimal nonproductive cough; no dyspnea. No nausea or vomiting. No BM since surgery. Mosqueda removed yesterday. Has some urinary incontinence- chronic problem. No dysuria. Postop pain well-controlled. . Objective Last 8 Hrs Date Time Temp Pulse Resp B/P (MAP) Pulse Ox O2 Delivery O2 Flow Rate FiO2 12/30/16 11:07 37.0 84 18 97 Room Air 12/30/16 08:15 97 Room Air 12/30/16 07:35 37.0 84 18 114/68 (83) 97 Room Air Physical Exam: General- sitting in chair; no distress Neck- no JVD Lungs- clear Heart- RRR, III/ systolic murmur at base Abdomen- + BS, soft, nontender Extremities- no pretibial edema or calf tenderness Neuro- alert, oriented; no cogwheel rigidity . Laboratory Results: Last 24 Hours Test 12/30/16 06:43 Hemoglobin 8.3 g/dL Hematocrit 25.1 % Sodium Level 132 mmol/L Potassium Level 4.2 mmol/L Chloride Level 96 mmol/L Carbon Dioxide Level 31 mmol/L Anion Gap 5.0 mmol/L Blood Urea Nitrogen 12 mg/dl Creatinine 0.37 mg/dl Est Creatinine Clear Calc Drug Dose 86.3 ml/min Estimated GFR () 112.2 Estimated GFR (Non- 96.8 BUN/Creatinine Ratio 31.6 Random Glucose 100 mg/dl Calcium Level 8.4 mg/dl Assessment & Plan INTERTROCHANTERIC FRACTURE RIGHT HIP Right intramedullary hip nail performed by Dr. Luu on 12/28/16. Doing well postoperatively. Continue analgesics, PT, OT. OSTEOPOROSIS 25-OH vitamin D level = 44. Discharge on calcium + D. ANEMIA Hgb 13.6 --> 9.8 --> 8.3. Acute blood loss anemia secondary to hip fracture. No sign of GI bleeding. Discharge on FeSO4. No need for transfusion at this time per guidelines. Follow H/H. Consider transfusion if Hgb < 8. SYSTOLIC HEART MURMUR Echo showed aortic sclerosis without significant stenosis. PARKINSON'S DISEASE Continue Sinemet + Comtan. VTE PROPHYLAXIS SQ enoxaparin. Ambulate. DISPOSITION Will need skilled care. Case Management consulted. Arrangements being made for transfer to [facility]. Internal Medicine follow-up with Dr. Milian. Ortho f/u with Dr. Luu 10 - 14 days after surgery (around 01/09). . Consultants: Orthopedics with Dr. Luu. . Procedures: CT head right intramedullary hip nail performed by Dr. Luu on 12/28/16 IV fluids IV meds . Current Inpatient Medications: Current Inpatient Medications Medications (Trade) Dose Ordered Sig/Tonie Route Start Time Stop Time Status Last Admin Dose Admin Alprazolam (Xanax Tab) 0.25 mg BID PO 12/28/16 09:00 01/27/17 08:59 12/30/16 08:59 0.25 MG Duloxetine HCl (Cymbalta Cap) 30 mg HS PO 12/28/16 21:00 01/27/17 20:59 12/29/16 20:50 30 MG Multivitamins (Multivitamin Tab) 1 tab DAILY PO 12/28/16 09:00 01/27/17 08:59 12/30/16 09:00 1 TAB Multivitamins/ Minerals (Multivitamin W/ Minerals Tab) 1 tab BID PO 12/28/16 09:00 01/27/17 08:59 12/30/16 08:59 1 TAB Pantoprazole Sodium (Protonix Tab) 40 mg DAILY PO 12/28/16 09:00 01/27/17 08:59 12/30/16 08:59 40 MG Ondansetron HCl (Zofran Inj) 4 mg Q6H PRN IV 12/27/16 22:00 01/26/17 21:59 Morphine Sulfate (MoRPHine SULFATE INJ) 4 mg Q3H PRN IV 12/27/16 22:00 01/10/17 21:59 12/27/16 23:37 4 MG Acetaminophen (Tylenol Tab) 650 mg Q4H PRN PO 12/27/16 22:00 01/26/17 21:59 Naloxone HCl (Narcan Inj) 0.1 mg PRN PRN IV 12/27/16 22:00 01/26/17 21:59 Senna/Docusate Sodium (Senokot S Tab) 2 tab HS PO 12/28/16 21:00 01/27/17 20:59 12/29/16 20:49 2 TAB Polyethylene (Miralax Powder Packet) 17 gm DAILY PRN PO 12/27/16 22:00 01/26/17 21:59 Magnesium Hydroxide (Milk Of Magnesia Susp) 30 ml DAILY PRN PO 12/27/16 22:00 01/26/17 21:59 Bisacodyl (Dulcolax Supp) 10 mg DAILY PRN [place] 12/27/16 22:00 01/26/17 21:59 Sodium Biphosphate/ Sodium Phosphate (Fleet Enema) 132 ml PRN PRN [place] 12/27/16 22:00 Carbidopa/Levodopa (Sinemet 25/ 100MG Tab) 2 tab 5XDQ4H PO 12/28/16 07:00 01/27/17 06:59 12/30/16 10:49 2 TAB Entacapone (Comtan) 400 mg 5XDQ4H PO 12/28/16 07:00 01/27/17 06:59 12/30/16 10:50 400 MG Enoxaparin Sodium (Lovenox Inj) 40 mg QAM SQ 12/29/16 09:00 01/28/17 08:59 12/30/16 08:59 40 MG Tramadol HCl (Ultram Tab) @ Q4H PRN PO 12/28/16 17:00 01/27/17 16:59 Oxycodone HCl (Roxicodone Immediate Rel Tab) 5 mg Q6HWA PRN PO 12/28/16 17:00 01/11/17 16:59 12/30/16 09:00 5 MG
[2016-12-30] MEDS ORDERED: CARB25TA12 PO (12:34)
[2016-12-30] MEDS ORDERED: SENN-65 PO (12:47)
[2016-12-30] MEDS ORDERED: OXYC1TAB3 PO (12:47)
[2016-12-30] MEDS ORDERED: POLY335025 PO (12:47)
[2016-12-30] MEDS ORDERED: LVNIS40 SQ (12:47)
--- NOTE | 2016-12-30 12:57 | Discharge Instructions ---
Discharge Instructions Date of Service Dec 30, 2016. Admission Reason for Admission: intertrochanteric fracture right hip . Discharge Discharge Diagnosis / Problem: intertrochanteric fracture right hip Discharge Goals Goal(s): Increase independence Activity Recommendations Activity Level: Assistance Required Therapies: Physical Therapy, Occupational Therapy Weightbearing Status: Right partial . Additional Information Patient informed of condition: Yes Advance Directives: Yes DNR: No Level of Care: Skilled Communicable Disease: No Prognosis: Improving Mosqueda Catheter: No Instructions / Follow-Up Instructions / Follow-Up FOLLOW-UP APPOINTMENTS ORTHOPEDICS Dr. Luu 10-14 days postop. Please call office for appointment. INTERNAL MEDICINE Dr. Milian. Please call office for appointment after discharge from your facility. NEUROLOGY Dr. Story as scheduled. . Current Hospital Diet Patient's current hospital diet: AHA Diet (Heart Healthy) Discharge Diet Recommended Diet: Regular Diet Procedures Procedures Performed: Right Intertrochanteric Hip Nailing Pending Studies Studies pending at discharge: no Physician Orders On Transfer Special Precautions: fall precautions skin precautions . Vital Signs: routine . Weigh: routine . Additional Orders: Patient has chronic urinary incontinence. - prompted voiding - adult diaper Please check H/H weekly. Consider outpatient transfusion if Hgb < 8. . Medical Emergencies . Who to Call and When: Medical Emergencies: If at any time you feel your situation is an emergency, please call 911 immediately. . Non-Emergent Contact Non-Emergency issues call your: Primary Care Provider, Hospital Doctor, Specialist (Orthopedic Surgeon) . . "Provider Documentation" section prepared by Beto Srinivasan. . [employer]dnance Truck Installation Supervisor Recommendations Ordnance Truck Installation Supervisor Recommendations: [facility] DISCHARGE INSTRUCTIONS: HIP FRACTURE SELF CARE INSTRUCTIONS: A. You are to ambulate with a walker or crutches for approximately 6 weeks. B. You are PARTIAL WEIGHT BEARING on your operative lower extremity for at least 6 weeks. C. Wear low heeled shoes with non-slip soles D. Be sure that your floors are free of things that could trip you throw rugs, electrical cords, and small objects. Avoid wet and waxed floors, especially with crutches/walker/cane. E. Try to walk several times a day with rest periods between. F. You may shower 48 hours after surgery and get the incision area wet, but DO NOT soak or submerge incision area in water. (No baths, swimming pools, hot tubs ) G. You may have a large, band-aid like dressing over your incision (Aquacel). This will remain on your incision for 7 days, and then can be removed. You CAN shower with this on. If incision is leaking through the dressing, please call the office . H. Do NOT apply soap or any ointment/lotions directly over incision. I. You may use ice as needed to operative site. SPECIAL CARE INSTRUCTIONS: VERY IMPORTANT TO READ AND REVIEW A. You may be at risk for phlebitis or blood clots. a. Wear surgical stockings (SIMONE hose) for 2 weeks after surgery to improve circulation and reduce swelling. b. Take LOVENOX 40mg SQ daily for 4 weeks or as directed. This is your blood thinner. B. There are a few signs you need to watch for after you are home. Call [facility] at [phone] if you experience any of the following: a. If you have a temperature of 101 degrees or higher. b. Sudden increase in pain in your hip not relieved by rest or pain medication. c. Any fluid or drainage from the incision; redness of the incision. d. Shortness of breath or chest pain. B. Please call [facility] at [phone] if you have any questions or concerns about your operation or recovery. C. Call your physician if: a. Temperature is greater than 101 degrees (F). b. Pain is not relieved by prescribed pain medications. c. Increase drainage or redness from incision. d. Unanswered questions or concerns. D. Pain Medication: a. You will be prescribed pain medication upon discharge that should last till your first post-operative appointment. b. If you experience nausea and/or skin rash, discontinue this medication and contact our office for an alternative medication. c. Caution- narcotic pain medication can cause constipation. FOLLOW UP VISIT: Please call [facility] at [phone] to schedule a follow up appointment 10-14 days from the date of your surgery date. . Core Measure Problem Core Measures: None [place] Drug Monitoring Program Search Results: patient reviewed within database, no issues identified (long- term alprazolam Rx)
[2016-12-30] MEDS ORDERED: FERR325T PO (13:00)
--- NOTE | 2016-12-30 13:04 | Discharge Summary ---
Discharge Summary Date of Service Dec 30, 2016. Discharge Summary Admission Date: Dec 27, 2016 at 21:19 Discharge Date: Dec 30, 2016 Discharge Disposition: [facility] facility ([facility]) Principal Diagnosis: intertrochanteric fracture right hip acute blood loss anemia secondary to hip fracture . Secondary Diagnoses/Problems: Chronic Medical Problems: (1) Anxiety Status: Chronic (2) Osteoporosis Status: Chronic (3) Parkinson disease Status: Chronic Surgical Problems: (1) History of cataract surgery Status: Chronic (2) History of left knee replacement Status: Chronic (3) History of repair of right rotator cuff Status: Chronic (4) History of spinal fusion Status: Chronic (5) Status post right knee replacement Status: Resolved . Procedures: CT head right intramedullary hip nail performed by Dr. Luu on 12/28/16 IV fluids IV meds . Consultations: Orthopedics with Dr. Luu. . Medication Reconciliation New Medications: Enoxaparin (Enoxaparin Sodium) 40 Mg/0.4 Ml Inj 40 MG SQ DAILY for 30 Days Ferrous Sulfate (Ferrous Sulfate) 325 Mg Tab 325 MG PO DAILY for 30 Days daily with lunch Oxycodone Ir (Roxicodone Ir) 5 Mg Tab 5 MG PO Q8 PRN for severe pain, #12 TAB Polyethylene Glycol 3350 (Miralax) 1 Pow Pow 17 GM PO BID PRN for Constipation for 30 Days Senna/Docusate Sod (Senokot S) 1 Tab Tab 1 TAB PO BID for 30 Days, #60 TAB Continued Medications: Acetaminophen (Tylenol) 500 Mg Tab 1000 MG PO Q8 PRN for Pain, TAB Alprazolam (Alprazolam) 0.25 Mg Tab 0.25 MG PO BID Aspirin (Aspirin EC Low Dose) 81 Mg Ectab 81 MG PO DAILY Calcium/Vitamin D (Os-Nithin 500 Plus D) Tab 1 TAB PO BID, TAB Increasing dose to 1 tablet twice a day. Carbidopa/Levodopa (Sinemet 25MG/100MG) Tab 2 TAB PO UD, TAB 5 times a day at [id number]-10PM Duloxetine HCl (Cymbalta) 30 Mg Cap 1 CAP PO HS for 30 Days, CAP 5 Refills Misc Natural Products (Osteo Bi-Flex Joint Shiel) 1 Tab Tab 2 TAB PO DAILY Multivitamin (Multivitamin) Tab 1 TAB PO DAILY, 0 Refills Ocuvite Preservision (Ocuvite Preservision) 1 Tab Tab 1 TAB PO BID, TAB Omeprazole (Prilosec) 20 Mg Capcr 20 MG PO DAILY, 0 Refills Tramadol (Ultram) 50 Mg Tab 50 MG PO Q6H PRN for Pain, TAB Discontinued Medications: Fish Oil (Morganza-3) 1 Ea Cap 1 CAP PO BID, CAP Admission Information HPI (per Admitting provider): 86 year old female who presents to the ER after a fall and right hip pain. Patient reports she was making dinner and when she turned away from the counter she fell to the floor. She denies lightheadedness, dizziness, or loss of coconsciousness. She did strike her head on the cabinets. She then had severe right hip pain and was unable to move her right leg. She denies associated chest pain or shortness of breath. She reports she has been feeling well recently. She is able to go to the grocery store and denies any exertional chest pain or shortness of breath. She denies abdominal pain, nausea, vomiting, or diarrhea. No fevers or chills. She denies urinary symptoms. In the ER, patient is found to have an intertrochanteric fracture right hip. Labs are unremarkable. Vitals are stable. . Physical Exam (per Admitting): General Appearance: no apparent distress Head: normocephalic Eyes: normal inspection ENT: hearing grossly normal Neck: supple, no JVD Respiratory/Chest: lungs clear, normal breath sounds, no respiratory distress Cardiovascular: regular rate, rhythm, no edema, normal peripheral pulses, + systolic murmur Abdomen/GI: normal bowel sounds, non tender, soft Extremities/Musculoskelatal: + pertinent finding (right hip pain with palpation and movement) Neurologic/Psych: no motor/sensory deficits, alert, normal mood/affect, oriented x 3 Skin: normal color, warm/dry Hospital Course INTERTROCHANTERIC FRACTURE RIGHT HIP Right intramedullary hip nail performed by Dr. Luu on 12/28/16. Doing well postoperatively. Continue analgesics, PT, OT. OSTEOPOROSIS 25-OH vitamin D level = 44. Discharge on calcium + D. ANEMIA Hgb 13.6 --> 9.8 --> 8.3. Acute blood loss anemia secondary to hip fracture. No sign of GI bleeding. Discharge on FeSO4. No need for transfusion at this time per guidelines. Follow H/H. Consider transfusion if Hgb < 8. SYSTOLIC HEART MURMUR Echo showed aortic sclerosis without significant stenosis. PARKINSON'S DISEASE Continue Sinemet + Comtan. VTE PROPHYLAXIS SQ enoxaparin. Ambulate. DISPOSITION Will need skilled care. Case Management consulted. Arrangements being made for transfer to [facility]. Internal Medicine follow-up with Dr. Milian. Ortho f/u with Dr. Luu 10 - 14 days after surgery (around 01/09). . Total time spent on discharge = 45 min. This includes examination of the patient, discharge planning, medication reconciliation, and communication with other providers. . Discharge Instructions Date of Service Dec 30, 2016. Admission Reason for Admission: intertrochanteric fracture right hip . Discharge Discharge Diagnosis / Problem: intertrochanteric fracture right hip Discharge Goals Goal(s): Increase independence Activity Recommendations Activity Level: Assistance Required Therapies: Physical Therapy, Occupational Therapy Weightbearing Status: Right partial . Additional Information Patient informed of condition: Yes Advance Directives: Yes DNR: No Level of Care: Skilled Communicable Disease: No Prognosis: Improving Mosqueda Catheter: No Instructions / Follow-Up Instructions / Follow-Up FOLLOW-UP APPOINTMENTS ORTHOPEDICS Dr. Luu 10-14 days postop. Please call office for appointment. INTERNAL MEDICINE Dr. Milian. Please call office for appointment after discharge from your facility. NEUROLOGY Dr. Story as scheduled. . Current Hospital Diet Patient's current hospital diet: AHA Diet (Heart Healthy) Discharge Diet Recommended Diet: Regular Diet Procedures Procedures Performed: Right Intertrochanteric Hip Nailing Pending Studies Studies pending at discharge: no Physician Orders On Transfer Special Precautions: fall precautions skin precautions . Vital Signs: routine . Weigh: routine . Additional Orders: Patient has chronic urinary incontinence. - prompted voiding - adult diaper Please check H/H weekly. Consider outpatient transfusion if Hgb < 8. . Medical Emergencies . Who to Call and When: Medical Emergencies: If at any time you feel your situation is an emergency, please call 911 immediately. . Non-Emergent Contact Non-Emergency issues call your: Primary Care Provider, Hospital Doctor, Specialist (Orthopedic Surgeon) . . "Provider Documentation" section prepared by Beto Srinivasan. . Unpaid Intern Recommendations Unpaid Intern Recommendations: UOC DISCHARGE INSTRUCTIONS: HIP FRACTURE SELF CARE INSTRUCTIONS: A. You are to ambulate with a walker or crutches for approximately 6 weeks. B. You are PARTIAL WEIGHT BEARING on your operative lower extremity for at least 6 weeks. C. Wear low heeled shoes with non-slip soles D. Be sure that your floors are free of things that could trip you throw rugs, electrical cords, and small objects. Avoid wet and waxed floors, especially with crutches/walker/cane. E. Try to walk several times a day with rest periods between. F. You may shower 48 hours after surgery and get the incision area wet, but DO NOT soak or submerge incision area in water. (No baths, swimming pools, hot tubs ) G. You may have a large, band-aid like dressing over your incision (Aquacel). This will remain on your incision for 7 days, and then can be removed. You CAN shower with this on. If incision is leaking through the dressing, please call the office . H. Do NOT apply soap or any ointment/lotions directly over incision. I. You may use ice as needed to operative site. SPECIAL CARE INSTRUCTIONS: VERY IMPORTANT TO READ AND REVIEW A. You may be at risk for phlebitis or blood clots. a. Wear surgical stockings (SIMONE hose) for 2 weeks after surgery to improve circulation and reduce swelling. b. Take LOVENOX 40mg SQ daily for 4 weeks or as directed. This is your blood thinner. B. There are a few signs you need to watch for after you are home. Call [facility] at [phone] if you experience any of the following: a. If you have a temperature of 101 degrees or higher. b. Sudden increase in pain in your hip not relieved by rest or pain medication. c. Any fluid or drainage from the incision; redness of the incision. d. Shortness of breath or chest pain. B. Please call [facility] at [phone] if you have any questions or concerns about your operation or recovery. C. Call your physician if: a. Temperature is greater than 101 degrees (F). b. Pain is not relieved by prescribed pain medications. c. Increase drainage or redness from incision. d. Unanswered questions or concerns. D. Pain Medication: a. You will be prescribed pain medication upon discharge that should last till your first post-operative appointment. b. If you experience nausea and/or skin rash, discontinue this medication and contact our office for an alternative medication. c. Caution- narcotic pain medication can cause constipation. FOLLOW UP VISIT: Please call [facility] at [phone] to schedule a follow up appointment 10-14 days from the date of your surgery date. . Core Measure Problem Core Measures: None Thank you for receiving this patient in transfer. Please call if you have any questions. Beto Zarina . Additional Copies To Tre Luu MD; Madhu Milian, Jimmy.O.
[2016-12-30 15:53] VITALS: BP 117/68; PULSE 86; TEMP 36.8; O2SAT 97
[2016-12-31] MEDS ORDERED: ALPR-412 PO ×2 (18:20→18:21)
== END 2016-12-30 18:05 | DRG 481 ==
LOC: EDBD 18:14 → C.EDC 18:16 → C.MSN 21:19 → ENRESERV 21:32
PROVIDERS: ADMIT Hospitalist; ATTEND Hospitalist
PROC: 0QS636Z Reposition Right Upper Femur with Intramedullary Internal Fixation Device, Percutaneous Approach (ICD-10-PCS; principal; 2016-12-28 08:30)
DX: S72.141A Displaced intertrochanteric fracture of right femur, initial encounter for closed fracture (principal); D62 Acute posthemorrhagic anemia; E87.1 Hypo-osmolality and hyponatremia; M81.0 Age-related osteoporosis without current pathological fracture; F41.9 Anxiety disorder, unspecified; I10 Essential (primary) hypertension; E86.0 Dehydration; G20 Parkinson's disease; Z96.653 Presence of artificial knee joint, bilateral; Z98.1 Arthrodesis status; Z79.82 Long term (current) use of aspirin; Z79.899 Other long term (current) drug therapy; W19.XXXA Unspecified fall, initial encounter; Y92.000 Kitchen of unspecified non-institutional (private) residence as the place of occurrence of the external cause